=== PATIENT | female | born 1995 | race Caucasian/White ===

== ENCOUNTER 2019-05-17 06:21 | Emergency (ER) | payer SELFPAY ==
[~2019-05-17] VITALS: Ht 160 cm; Wt 84.0 kg
[2019-05-17 06:48] LABS: BILIRUBIN,URINE NEGATIVE (NEGATIVE); CLARITY,URINE CLEAR; COLOR,URINE DARK YELLOW; GLUCOSE, URINE (UA) NEGATIVE (NEGATIVE); KETONES,URINE NEGATIVE (NEGATIVE); LEUKOCYTE ESTERASE ,URINE NEGATIVE (NEGATIVE); NITRITE,URINE NEGATIVE (NEGATIVE); PH,URINE 5.5 (5-9); PROTEIN,URINE NEGATIVE (NEGATIVE)
--- NOTE | 2019-05-17 06:56 | ED General ---
General Chief Complaint: General Problems/Pain Stated Complaint: N/DIZZY,SHAKEY,WEAK Source of Information: Patient Exam Limitations: No Limitations History of Present Illness Date Seen by Provider: May 17, 2019 Time Seen by Provider: 06:38 Initial Comments Here with report of dizziness, nausea without vomiting, shaky and breast pain. She is 2 weeks past her time for her last menstrual period. She is sexually active and while she is not actively trying for , she is also not trying to prevent it. Denies fever or upper respiratory symptoms. Denies cough or shortness of breath. 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 Timing/Duration: 1-3 Hours Severity: Mild Associated Systoms: No Chest Pain, No Cough, No Fever/Chills, No Shortness of Air, No Weakness Allergies and Home Medications Allergies Coded Allergies: No Known Drug Allergies (Unverified , 05/17/19) Patient Home Medication List Home Medication List Reviewed: Yes Review of Systems Review of Systems Constitutional: no symptoms reported EENTM: No nose congestion, No throat pain Respiratory: No cough, No short of breath Cardiovascular: no symptoms reported Gastrointestinal: No diarrhea; nausea; No vomiting Genitourinary: No dysuria, No hematuria : Yes LMP: Apr 01, 2019 Musculoskeletal: no symptoms reported Skin: no symptoms reported Psychiatric/Neurological: Denies Headache; Other (dizziness) Past Qppqket-Saqzcx-Gmajgj Hx Past Med/Social Hx: Reviewed Nursing Past Med/Soc Hx Patient Social History Alcohol Use: Denies Use Recreational Drug Use: No Smoking Status: Current Everyday Smoker Recent Foreign Travel: No Contact w/Someone Who Travel: No Past Medical History Surgeries: Yes Tonsillectomy Respiratory: No Cardiac: No Neurological: No : Yes Genitourinary: No Gastrointestinal: No Musculoskeletal: No Endocrine: No Psychosocial: Yes Sleep Difficulties, Depression Family Medical History Reviewed Nursing Family Hx No Pertinent Family Hx Physical Exam Vital Signs Capillary Refill : Height, Weight, BMI Height: '" Weight: lbs. oz. kg; BMI Method: General Appearance: No Apparent Distress, WD/WN HEENT: PERRL/EOMI, TMs Normal, Pharynx Normal Neck: Non Tender, Supple Respiratory: Lungs Clear, Normal Breath Sounds Cardiovascular: Regular Rate, Rhythm, No Murmur Gastrointestinal: No Organomegaly, No Pulsatile Mass, Non Tender, Soft Extremity: Non Tender, No Calf Tenderness Neurologic/Psychiatric: Alert, Oriented x3 Skin: Normal Color, Warm/Dry Progress/Results/Core Measures Suspected Sepsis SIRS Temperature: Pulse: Respiratory Rate: Blood Pressure / Mean: Results/Orders Lab Results Laboratory Tests Test 05/17/19 06:39 Range/Units My Orders Orders - MURALI HOGAN MD Ua Culture If Indicated (05/17/19 06:39) Urine Bedside (05/17/19 06:39) Vital Signs/I&O Capillary Refill : Progress Note : Progress Note Seen and evaluated. Patient did have concerns about and symptoms. Morning sickness. We will get a bedside test and UA. 0653: Bedside test is positive for . Patient informed. We will forego further testing and symptoms fit with early and she is having no vaginal discharge or bleeding and no significant abdominal pain. UA has been ordered and we're awaiting results. Departure Impression Primary Impression: Nausea/vomiting in Disposition: 01 HOME, SELF-CARE Condition: Stable Departure-Patient Inst. Decision time for Depature: 07:00 Referrals: EMILIA KEYES BETHANY N MD FENECH,TORIE DE LUNA MD,MIGUEL ÁNGEL HINOJOSA,LOCAL PHYSICIAN (PCP) Primary Care Physician MATY SOLOMON ANGELA C DO [facility] Patient Instructions: Morning Sickness (DC) Add. Discharge Instructions: All discharge instructions reviewed with patient and/or family. Voiced understanding. Stay hydrated by taking small sips frequently. You may try light foods such as crackers and toast during times of nausea. You should start oobm-lfs-orxdpgm vitamin. You need to seek OB care. You should stop smoking. Follow-up with doctor of your choosing in the next few days for recheck and further evaluation. Return for worse pain, fever, vomiting, weakness, breathing problems or other concerns as needed. Work/School Note: Work Release Form Date Seen in the Emergency Department: May 17, 2019 Return to Work: May 18, 2019 Restrictions: No Restrictions MURALI HOGAN MD May 17, 2019 06:56
[2019-05-17 07:08] LABS: BACTERIA,URINE FEW /HPF; WBC,URINE 0-2 /HPF
[2019-05-17 07:20] VITALS: BP 126/87
== END 2019-05-17 07:20 | disposition home or self-care (01) ==
LOC: ER 06:28
DX: O21.0 Mild hyperemesis gravidarum (principal); O99.331 Smoking (tobacco) complicating pregnancy, first trimester; F17.200 Nicotine dependence, unspecified, uncomplicated; Z3A.01 Less than 8 weeks gestation of pregnancy
CPT/HCPCS: 81000; 84703; 99282

== ENCOUNTER 2019-06-21 12:59 | Emergency (ER) | payer SELFPAY ==
[~2019-06-21] VITALS: Ht 162.5 cm; Wt 92.0 kg
--- NOTE | 2019-06-21 13:25 | ED Lower Extremity ---
General Stated Complaint: L LEG PAIN Source: patient Exam Limitations: no limitations History of Present Illness Date Seen by Provider: June 21, 2019 Time Seen by Provider: 13:09 Initial Comments Patient presents ER by private home with chief complaint of left lower lateral leg pain for the past couple days. She is concerned he might have a blood clot. She smokes 2-3 cigarettes per day. She is a at 10 weeks and [address] Chu. She's had no injury to her leg. Worse with movement or walking. She has no problems bearing weight. No prior history of blood clots but she thinks her mother may have had blood clots when she was younger as well as her sister and she has two nephews with history of DVTs in their legs. She has not taken any other medications nor have any significant medical history. She is not having chest pain. She has no new shortness of breath. She says she's always felt a little short of breath since becoming . Allergies and Home Medications Allergies Coded Allergies: No Known Drug Allergies (Unverified , 05/17/19) Patient Home Medication List Home Medication List Reviewed: Yes Review of Systems Constitutional: No chills, No fever EENTM: No hearing loss, No ear pain Respiratory: No cough, No phlegm Cardiovascular: No chest pain, No edema Gastrointestinal: No abdominal pain, No nausea, No vomiting : Yes Expected Date of Delivery: Jan 15, 2020 LMP: Apr 10, 2019 Control/STD Prophylaxis: None Musculoskeletal: see HPI Past Hlpzyha-Tfrbip-Xowoyy Hx Patient Social History Alcohol Use: Denies Use Recreational Drug Use: No Smoking Status: Current Everyday Smoker (0.25 ppd) Type Used: Cigarettes 2nd Hand Smoke Exposure: No Recent Hopitalizations: No Seasonal Allergies Seasonal Allergies: No Past Medical History Surgeries: Yes Tonsillectomy Respiratory: No Cardiac: No Neurological: No Genitourinary: No Gastrointestinal: No Musculoskeletal: No Endocrine: No HEENT: No Cancer: No Psychosocial: Yes Sleep Difficulties, Depression Integumentary: No Blood Disorders: No Family Medical History No Pertinent Family Hx Physical Exam Vital Signs Vital Signs - First Documented 06/21/19 13:11 Temp 37.0 Pulse 94 Resp 18 B/P (MAP) 144/84 (104) Pulse Ox 99 Capillary Refill : Height, Weight, BMI Height: '" Weight: lbs. oz. kg; 32.00 BMI Method: General Appearance: WD/WN, no apparent distress HEENT: PERRL/EOMI, pharynx normal Neck: full range of motion, normal inspection Cardiovascular: normal peripheral pulses, regular rate, rhythm Respiratory: no respiratory distress, no accessory muscle use Legs: right leg non-tender; bilateral leg normal inspection, bilateral leg normal range of motion, bilateral leg no evidence of injury; left leg soft tissue tenderness (posterior lateral calf); bilateral leg other (symmetric size. Negative for Homans sign) Knees: bilateral knee non-tender, bilateral knee normal inspection, bilateral knee normal range of motion, bilateral knee no evidence of injury Ankles: bilateral ankle non-tender, bilateral ankle normal inspection, bilateral ankle normal range of motion, bilateral ankle no evidence of injury Neurologic/Tendon: normal sensation, normal motor functions, normal tendon functions, responds to pain Neurologic/Psychiatric: alert, normal mood/affect, oriented x 3 Skin: normal color, warm/dry Progress/Results/Core Measures Results/Orders Lab Results Laboratory Tests Test 06/21/19 13:30 Range/Units D-Dimer < 0.27 0.00-0.49 UG/ML My Orders Orders - KIRAN KOO Fibrin Degradation Products (06/21/19 13:19) Vital Signs/I&O 06/21/19 13:11 Temp 37.0 Pulse 94 Resp 18 B/P (MAP) 144/84 (104) Pulse Ox 99 Progress Progress Note : Time: 13:24 Progress Note Plan for a d-dimer. She showing no hemodynamic compromise. If the d-dimer failed to rule out we did set her up for an outpatient ultrasound and give her Lovenox. Departure Impression Primary Impression: Left leg pain Disposition: 01 HOME, SELF-CARE Condition: Stable Departure-Patient Inst. Decision time for Depature: 14:16 Referrals: NO,LOCAL PHYSICIAN (PCP/Family) Primary Care Physician Patient Instructions: Passive Range of Motion Exercises, Legs, Hips, Knees, and Ankles Add. Discharge Instructions: We can rule out a blood clot or any other dangerous source of pain from your leg based on clinical exam and laboratory. I suspect that there may be some subtle swelling impinging on nerve or other musculoskeletal injury that should resolve on its own. Over the weekend keep your legs elevated above the level of your heart when you don't need to be on them. Engage in some stretching exercises and walking for health. Tylenol 650 mg every 6 hours as needed for pain. Heat and massage may also be helpful. Plan to follow up with Dr. Chu on Monday. Return to the ER sooner if you have new or worrisome symptoms such as chest pain or profound shortness of breath etc. KIRAN KOO June 21, 2019 13:25
[2019-06-21 14:20] VITALS: BP 112/67
--- OUTSIDE RECORDS SUMMARY | 2019-06-21 14:42 | XMS REPORT | Continuity of Care Document ---
Author Organization Unknown Address Unknown Phone Unavailable Allergies Active Description Code Type Severity Reaction Onset Reported/Identified Relationship to Patient Clinical Status Yes No Known Drug Allergies [id number] Drug Allergy Unknown N/A 05/17/2019 Medications There is no data. 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 Results Test Result Range Complete urinalysis with reflex to cultu re - 05/17/19 06:39 Urine color determination DARK YELLOW N RG Urine clarity determination CLEAR NR G Urine pH measurement by test strip 5.5 5-9 Specific gravity of urine by test strip >= 1.016-1.022 Urine protein assay by test strip, semi-quantitative NEGATIVE NEGATIVE Urine glucose detection by automated test strip NE GATIVE NEGATIVE Erythrocytes detection in urine sediment by light micr oscopy NEGATIVE NEGATIVE Urine ketones detection by automated test strip NE GATIVE NEGATIVE Urine nitrite detection by test strip NEGATIVE NEGATIVE Urine total bilirubin detection by test strip NEGA TIVE NEGATIVE Urine urobilinogen measurement by automated test strip (mass/volume) 1.0 mg/dL < = 1.0 Urine leukocyte esterase detection by dipstick NEG ATIVE NEGATIVE Automated urine sediment erythrocyte cou nt by microscopy (number/high power field) NONE NRG Automated urine sediment leukocyte count by microscopy (number/high power field) [HPF] NRG Bacteria detection in urine sediment by light microsco py FEW NRG Squamous epithelial cells detection in u rine sediment by light microscopy 5-10 NRG Crystals detection in urine sediment by light microsco py NONE NRG Casts detection in urine sediment by light microscopy NONE NRG Mucus detection in urine sediment by light microscopy NEGATIVE NRG Complete urinalysis with reflex to culture NO NRG CBC - 05/27/19 15:52 WHITE BLOOD CELL COUNT 10.5 Thousand/uL 3.8-10.8 RED BLOOD CELL COUNT 4.32 Million/uL 3.8 0-5.10 HEMOGLOBIN 13.6 g/dL 11.7-15.5 HEMATOCRIT 41.2 % 35.0-45.0 MCV 95.4 fL 80.0-100.0 MCH 31.5 pg 27.0-33.0 MCHC 33.0 g/dL 32.0-36.0 RDW 12.3 % 11.0-15.0 PLATELET COUNT 288 Thousand/uL 140-400 MPV 11.7 fL 7.5-12.5 ABSOLUTE NEUTROPHILS 6636 cells/uL 1500- 7800 ABSOLUTE LYMPHOCYTES 3024 cells/uL 850-3 900 ABSOLUTE MONOCYTES 641 cells/uL 200-950 ABSOLUTE EOSINOPHILS 147 cells/uL 15-500 ABSOLUTE BASOPHILS 53 cells/uL 0-200 NEUTROPHILS 63.2 % NRG LYMPHOCYTES 28.8 % NRG MONOCYTES 6.1 % NRG EOSINOPHILS 1.4 % NRG BASOPHILS 0.5 % NRG BLOOD TPYE/RH FACTOR - 05/27/19 15:52 ABO GROUP A NRG RH TYPE RH(D) POSITIVE NRG ANTIBODY SCREEN - 05/27/19 15:52 ANTIBODY SCREEN, RBC W/REFL ID, TITER AND AG NO ANTIBODIES DETECTED NRG HCG, QUANTITATIVE - 05/27/19 15:52 [place], [place] [address] mIU/mL NRG RUBELLA IMMUNE STATUS - 05/27/19 15:52 RUBELLA ANTIBODY (IGG) 1.48 index NRG SUREPATH PAP RFX HPV mRNA E6/E7 - 15:54 CLINICAL INFORMATION: NRG LMP: NONE GIVEN NRG PREV. PAP: NONE GIVEN NRG PREV. BX: NONE GIVEN NRG SOURCE: Cervix NRG STATEMENT OF ADEQUACY: NRG INTERPRETATION/RESULT: NRG HOME ECONOMICS TEACHER: NRG COMMENT NRG Fibrin D-dimer FEU measurement in platel et poor plasma (mass/volume) - 06/21/19 13:30 Fibrin D-dimer FEU measurement in platelet poor plasma (mass/volume) < ug/mL 0.00-0.49 Encounters ACCT No. Visit Date/Time Discharge Status Pt. Type Provider Facility Loc./Unit Complaint [id number] 06/18/2019 15:00:00 ACT Outpatient [facility] [id number] 05/27/2019 14:30:00 Document Registration [id number] 05/17/2019 06:28:00 020 07:20:00 DIS Outpatient SAMIRA ALICIA, MURALI Crowell [facility] N/DIZZY,PHONG GAMA,2WKS PREG [id number] 06/21/2019 13:51:00 Document Registration
== END 2019-06-21 14:20 | disposition home or self-care (01) ==
LOC: EDUNIT# 12:59 → ER 13:03
DX: O99.89 Other specified diseases and conditions complicating pregnancy, childbirth and the puerperium (principal); M79.662 Pain in left lower leg; O99.331 Smoking (tobacco) complicating pregnancy, first trimester; F17.210 Nicotine dependence, cigarettes, uncomplicated; Z3A.10 10 weeks gestation of pregnancy
CPT/HCPCS: 36415; 85379; 99283

== ENCOUNTER 2019-10-10 13:53 | Outpatient (CLI) | payer MEDICAID ==
[~2019-10-10] VITALS: Ht 160 cm; Wt 101.7 kg
--- NOTE | 2019-10-10 13:45 | NUR ---
NANETTE ANGELA presented to unit via AMBULATORY from ED, accompanied by S/O, with c/o FALL. NANETTE ANGELA weighed, gowned, voided, and to bed. EFHM and TOCO applied, VS taken. NANETTE ANGELA oriented to bed controls, call light, TV, heat, and A/C controls.
[2019-10-10 14:06] VITALS: BP 114/76
[2019-10-10 14:14] VITALS: BP 114/76
[2019-10-10] MEDS ORDERED: BUSP15TA60 PO (14:19)
[2019-10-10] MEDS ORDERED: PREN-37 PO (14:20)
[2019-10-10] MEDS ORDERED: ONDA4TAB11 PO (14:20)
--- NOTE | 2019-10-10 14:30 | NUR ---
DR. SOLOMON NOTIFIED OF PT'S STATUS, @ 25.4 WKS, FELL AROUND [phone], LANDED ON RIGHT HIP AND LEFT KNEE, REVIEW OF STRIP, UNABLE TO VOID. ORDERS RECEIVED FOR DISCHARGE HOME.
--- NOTE | 2019-10-10 14:40 | NUR ---
DISCHARGE PAPERS PROVIDED AND REVIEWED WITH PT, PT VERBALIZES UNDERSTANDING AND DENIES ANY QUESTIONS AT THIS TIME. PAPER SIGNED.
--- NOTE | 2019-10-10 14:43 | NUR ---
PT DISCHARGED FROM [facility] TO [facility] VIA AMBULATORY IN STABLE CONDITION ACC BY S/O.
== END 2019-10-10 14:43 | disposition home or self-care (01) ==
LOC: WSo 13:53
PROVIDERS: ATTEND Obstetrics & Gynecology
DX: Z34.90 Encounter for supervision of normal pregnancy, unspecified, unspecified trimester (principal); Z3A.00 Weeks of gestation of pregnancy not specified
CPT/HCPCS: 99212

== ENCOUNTER 2019-10-16 15:19 | Outpatient (CLI) | payer MEDICAID ==
[~2019-10-16] VITALS: Ht 160 cm; Wt 99.4 kg
--- NOTE | 2019-10-16 15:00 | NUR ---
Arrived to unit with c/o decreased movement. wt obtained and to room 315. Gowned and urine sample obtained. To bed and oriented to room, call light and surroundings. bed controls explained. plan of care reviewed with pt. pt reports she is concerned with the Diflucan that was prescribed to her and well being of baby with decreased movement.
--- NOTE | 2019-10-16 15:10 | NUR ---
marker button given to wagner kicks. pt reports feeling baby move at this time
[2019-10-16 15:15] VITALS: BP 124/77
[~2019-10-16 15:19] MED LIST: BUSP15TA60 PO; ONDA4TAB11 PO; PREN-37 PO
[2019-10-16 15:37] VITALS: BP 124/77
[2019-10-16] MEDS ORDERED: FLUC200T PO (15:40)
--- NOTE | 2019-10-16 15:50 | NUR ---
Dr Smith called and notified of pt arrival, c/o, assessment, no contractions noted, fhr pattern and kicks felt. New orders for discharge received. dr smith ok with pt stopping Diflucan if she is uncomfortable taking prescribed medication.
--- NOTE | 2019-10-16 15:59 | NUR ---
monitors off. plan of care reviewed with pt per Sandro Chavez RN
--- NOTE | 2019-10-16 16:01 | NUR ---
Discharge instructions explained, signed and copy to patient. pt verbalized understanding of instructions and denied questions.
--- NOTE | 2019-10-16 16:05 | NUR ---
Discharged to home. Ambulates self downstairs accompanied by s.o. To private vehicle with belongings.
== END 2019-10-16 16:05 | disposition home or self-care (01) ==
LOC: WSo 15:19 → LDRP 15:20 → WSo 16:05
PROVIDERS: ATTEND Obstetrics & Gynecology
DX: O36.8120 Decreased fetal movements, second trimester, not applicable or unspecified (principal); Z3A.27 27 weeks gestation of pregnancy
CPT/HCPCS: 99213

== ENCOUNTER 2019-11-24 20:35 | Outpatient (CLI) | payer MEDICAID ==
[~2019-11-24] VITALS: Ht 162.6 cm; Wt 106.3 kg
[~2019-11-24 20:35] MED LIST changes: +FLUC200T PO
--- NOTE | 2019-11-24 20:35 | NUR ---
NANETTE ANGELA presented to unit via ambulatory from ED, accompanied by s/o, with c/o LEAKING FLUID. NANETTE ANGELA weighed, gowned, voided, and to bed. EFHM and TOCO applied, VS taken. NANETTE ANGELA oriented to bed controls, call light, TV, heat, and A/C controls. above and further assessments completed per this rn.
[2019-11-24 21:09] VITALS: BP 0/0
[2019-11-24 21:23] LABS: BILIRUBIN,URINE NEGATIVE (NEGATIVE); CLARITY,URINE CLOUDY; COLOR,URINE YELLOW; GLUCOSE, URINE (UA) NEGATIVE (NEGATIVE); KETONES,URINE NEGATIVE (NEGATIVE); LEUKOCYTE ESTERASE ,URINE NEGATIVE (NEGATIVE); NITRITE,URINE NEGATIVE (NEGATIVE); PROTEIN,URINE NEGATIVE (NEGATIVE)
[2019-11-24 21:28] VITALS: BP 137/92
[2019-11-24 21:32] LABS: BACTERIA,URINE TRACE /HPF; WBC,URINE 0-2 /HPF
--- NOTE | 2019-11-24 21:38 | NUR ---
notified of pt arrival, gestation, c/o leaking, nitrazine and fern results, ctx pattern, fhr pattern with screenshots send via phone, u/a results, vs with pt concerns of preeclamsia r/t andujar, n/v x1 day, and history of protein in urine. orders for cbc, cmp, ldh, uric acid, and urine protein creatnin ratio ordered.
[2019-11-24 22:27] LABS: BASOPHILS % (AUTO) 0 % (0-10); EOSINOPHILS # (AUTO) 0.2 10^3/uL (0.0-0.3); EOSINOPHILS % (AUTO) 1 % (0-10); HEMATOCRIT 40 % (35-52); HEMOGLOBIN 13.6 g/dL (11.5-16.0); LYMPHOCYTES # (AUTO) 2.6 10^3/uL (1.0-4.0); LYMPHOCYTES % (AUTO) 24 % (12-44); MEAN CORPUSCULAR HEMOGLOBIN 32 pg (25-34); MEAN CORPUSCULAR HGB CONC 34 g/dL (32-36); MEAN CORPUSCULAR VOLUME 94 fL (80-99); MEAN PLATELET VOLUME 12.7 fL (9.0-12.2); MONOCYTES % (AUTO) 10 % (0-12); NEUTROPHILS # (AUTO) 6.9 10^3/uL (1.8-7.8); NEUTROPHILS % (AUTO) 64 % (42-75); PLATELET COUNT 236 10^3/uL (130-400); WHITE BLOOD COUNT 10.7 10^3/uL (4.3-11.0)
[2019-11-24 22:39] LABS: ALBUMIN 3.2 GM/DL (3.2-4.5); CHLORIDE 103 MMOL/L (98-107); POTASSIUM 3.8 MMOL/L (3.6-5.0); SODIUM 138 MMOL/L (135-145)
[2019-11-24 22:41] LABS: GLUCOSE 86 MG/DL (70-105); TOTAL PROTEIN 6.3 GM/DL (6.4-8.2)
[2019-11-24 22:42] LABS: CARBON DIOXIDE 20 MMOL/L (21-32)
[2019-11-24 22:43] LABS: BILIRUBIN,TOTAL 0.2 MG/DL (0.1-1.0)
[2019-11-24 22:45] LABS: ALKALINE PHOSPHATASE 98 U/L (40-136); GFR ESTIMATED > 60
[2019-11-24 22:46] LABS: BUN/CREATININE RATIO 15
[2019-11-24 22:48] LABS: ALANINE AMINOTRANSFERASE 12 U/L (0-55); URIC ACID 4.9 MG/DL (2.6-7.2)
--- NOTE | 2019-11-24 22:55 | NUR ---
notified of lab results and fhr pattern, rn questioned if dr could view strip from home and dr reported it is a possibility for her. Orders for LR bolus at this time. will cont to monitor.
[2019-11-24] MEDS ORDERED: LACTATED RINGERS 1,000 ML IV ONE (23:30)
--- NOTE | 2019-11-24 23:47 | NUR ---
RN requested physician view strip at home, and to call unit, contacts rn and reports difficulty with log in, deceleration noted at 2338 verbally reported to physician, orders for continuous monitoring overnight with bpp and ultrasound evaluation of fluid level and placenta in am.
--- NOTE | 2019-11-25 00:57 | NUR ---
notified of two latest decelerations being deep variable in nature, as physician on phone variable decel being described real time to physician. Physician logging in to computer, asks for surgeon electronic device repairer, which is , dr. dumont to contact either or [place] [facility]. Addendum: 11/25/19 at 0141 by TOO HUDSON RN rn reminded physician that no sve has been performed, no orders to carry out sve at this time.
[2019-11-25] MEDS ORDERED: LACTATED RINGERS 1,000 ML IV SCH (02:00)
[2019-11-25] MEDS ORDERED: D5 LR IV SOLUTION 1,000 ML IV SCH (02:00)
[2019-11-25] MEDS ORDERED: D5 LR IV SOLUTION 1,000 ML IV ONE (02:01)
--- NOTE | 2019-11-25 03:50 | NUR ---
calls unit and notifies this rn of birthing center accepting patient, orders for betamethasone given. see emar.
[2019-11-25] MEDS ORDERED: BETAMETHASONE ACE/NA PHOS 6 MG/ML (CELESTONE SOLUSPAN) ONE (03:53)
--- NOTE | 2019-11-25 04:03 | NUR ---
Shift notified of request for transfer. Addendum: 11/25/19 at 0447 by TOO HUDSON RN company: [facility]
--- NOTE | 2019-11-25 04:07 | NUR ---
[facility] dispatch notified of request for transfer
--- NOTE | 2019-11-25 04:11 | NUR ---
Report to Brandee israel RN of [facility].
--- NOTE | 2019-11-25 04:30 | NUR ---
EMS present on unit for transfer.
[2019-11-25 04:40] VITALS: BP 111/63
--- NOTE | 2019-11-25 04:43 | NUR ---
PT off unit at this time via stretcher with [facility] ems team.
--- NOTE | 2019-11-25 08:32 | Short Stay Summary ---
History of Present Illness History of Present Illness Reason for visit/HPI G1 at 32w5d presented to labor and delivery with complaint of leaking fluid. After arrival on further questioning, also admitted headache, vomiting yesterday and decreased movement. Denies contractions. Date of Admission 11/24/19 Date of Discharge 11/25/19 Time Seen by Provider: 00:00 Attending Physician Dani Whaley MD Admitting Physician [facility] Consult Allergies and Home Medications Allergies Coded Allergies: No Known Drug Allergies (Unverified , 05/17/19) Home Medications Buspirone HCl 15 Mg Tablet, 15 MG PO BID, (Reported) Ondansetron 4 Mg Tab.rapdis, 4 MG PO DAILY, (Reported) Vit/Iron Fumarate/FA 1 Each Tablet, 1 EACH PO DAILY, (Reported) Patient Home Medication List Home Medication List Reviewed: Yes Past Ofskxdl-Chadpb-Mxnyqg Hx Patient Social History Alcohol Use: Denies Use Recreational Drug Use: No Smoking Status: Current Everyday Smoker Type Used: Cigarettes 2nd Hand Smoke Exposure: Yes Recent Hopitalizations: No Immunizations Up To Date Date of Influenza Vaccine: Sep 24, 2019 Seasonal Allergies Seasonal Allergies: No Surgeries Yes Tonsillectomy Respiratory No Cardiovascular No Neurological No Reproductive System Expected Date of Delivery: Jan 15, 2020 Hx : 1 Hx Para: 0 Hx Total # of Abortions (Spona: 0 Genitourinary No Gastrointestinal No Musculoskeletal No Endocrine History of Endocrine Disorders: No HEENT History of HEENT Disorders: No Cancer No Psychosocial History of Psychiatric Problem: Yes Behavioral Health Disorders: Sleep Difficulties, Depression Integumentary History of Skin or Integumenta: No Blood Transfusions History of Blood Disorders: No Family Medical History Significant Family History: No Pertinent Family Hx Review of Systems Constitutional: No fever Respiratory: No cough, No short of breath Gastrointestinal: see HPI Genitourinary: see HPI : Yes Expected Date of Delivery: Jan 15, 2020 Physical Exam Vital Signs Vital Signs - First Documented 11/24/19 11/25/19 11/25/19 21:09 00:00 04:40 Temp 36.8 Pulse 0 Resp 18 B/P (MAP) 111/63 (79) Pulse Ox 0 O2 Delivery Room Air O2 Flow Rate 15.00 Capillary Refill : Less Than 3 Seconds Height, Weight, BMI Height: '" Weight: lbs. oz. kg; 40.20 BMI Method: General Appearance: Other (exam per nursing) Short Stay Diagnosis Discharge Diagnosis-Short Stay Admission Diagnosis: Third trimester 32 weeks gestation Leaking fluid Vomiting Headache Final Discharge Diagnosis: Third trimester 32 weeks gestation SROM ruled out- negative nitrazine and ferning Vomiting- none during admit, LFTs normal Headache- mildly elevated blood pressure, CBC, CMP, uric acid, LDH and urine pr/cr ratio unremarkable heart rate decelerations- recurrent unexplained decelerations- as low as 60s and as long as 2 minutes without contractions, transferred to [place] for further evaluation and in case of need for delivery given availability of NICU Conclusion Labs Laboratory Tests 11/24/19 20:50: Amniotic Fluid Ferning Test NEG 11/24/19 20:55: Urine Color YELLOW, Urine Clarity CLOUDY, Urine pH 6.0, Urine Specific [place] 1.025H, Urine Protein 13H, Urine Glucose (UA) NEGATIVE, Urine Ketones NEGATIVE, Urine Nitrite NEGATIVE, Urine Bilirubin NEGATIVE, Urine Urobilinogen 0.2, Urine Leukocyte Esterase NEGATIVE, Urine RBC (Auto) NEGATIVE, Urine RBC NONE, Urine WBC 0-2, Urine Squamous Epithelial Cells 5-10, Urine Crystals NONE, Urine Bacteria TRACE, Urine Casts NONE, Urine Mucus NEGATIVE, Urine Culture Indicated NO, Urine Creatinine 93, Urine Protein/Creatinine Ratio 0.14 11/24/19 21:55: White Blood Count 10.7, Red Blood Count 4.21, Hemoglobin 13.6, Hematocrit 40, Mean Corpuscular Volume 94, Mean Corpuscular Hemoglobin 32, Mean Corpuscular Hemoglobin Concent 34, Red Cell Distribution Width 13.3, Platelet Count 236, Mean Platelet Volume 12.7H, Immature Granulocyte % (Auto) 1, Neutrophils (%) (Auto) 64, Lymphocytes (%) (Auto) 24, Monocytes (%) (Auto) 10, Eosinophils (%) (Auto) 1, Basophils (%) (Auto) 0, Neutrophils # (Auto) 6.9, Lymphocytes # (Auto) 2.6, Monocytes # (Auto) 1.0, Eosinophils # (Auto) 0.2, Basophils # (Auto) 0.0, Immature Granulocyte # (Auto) 0.1, Sodium Level 138, Potassium Level 3.8, Chloride Level 103, Carbon Dioxide Level 20L, Anion Gap 15H, Blood Urea Nitrogen 9, Creatinine 0.60, Estimat Glomerular Filtration Rate > 60, BUN/Creatinine Ratio 15, Glucose Level 86, Uric Acid 4.9, Calcium Level 9.0, Corrected Calcium 9.6, Total Bilirubin 0.2, Aspartate Amino Transf (AST/SGOT) 9, Alanine Aminotransferase (ALT/SGPT) 12, Alkaline Phosphatase 98, Lactate Dehydrogenase 138, Total Protein 6.3L, Albumin 3.2 Conclusion/Plan See discharge diagnosis. I did not see patient, I did review her heart rate tracing and labs and discussed case with nurse and coordinated transfer. Copy Copies To 1: TORIE TOLENTINO MD,DANI Centeno MD Nov 25, 2019 08:32
[2019-11-25] MEDS ORDERED: BETAMETHASONE ACE/NA PHOS 6 MG/ML (CELESTONE SOLUSPAN) IM ONE (09:00)
== END 2019-11-25 04:43 | disposition designated cancer center or children's hospital (05) ==
LOC: WSo 20:35 → LDRP 20:35 → WSo 11-25 04:43
PROVIDERS: ATTEND Family Medicine
DX: O36.8130 Decreased fetal movements, third trimester, not applicable or unspecified (principal); O26.893 Other specified pregnancy related conditions, third trimester; R51.9 Headache, unspecified; Z3A.32 32 weeks gestation of pregnancy
CPT/HCPCS: 80053; 81000; 82570; 83615; 84156; 84550; 85025; 96360; 96361; G0463; Q0114; 36415; 89060; 99213

== ENCOUNTER 2020-01-22 20:06 | Emergency (ER) | payer MEDICAID ==
[~2020-01-22] VITALS: Ht 165.1 cm; Wt 72.6 kg
--- NOTE | 2020-01-22 20:25 | ED Respiratory ---
General Chief Complaint: Cough/Cold/Flu Symptoms Stated Complaint: SORE THROAT/COUGHING/BODY ACHES/SOB Source: patient Exam Limitations: no limitations History of Present Illness Date Seen by Provider: Jan 22, 2020 Time Seen by Provider: 20:24 Initial Comments This is a healthy-appearing 24-year-old female presents to ER with complaints of cough, congestion, fever, sore throat, and loss of taste/smell 3 days ago. States she would like to be checked out for COVID. Denies chest pain, shortness of breath, nausea, vomiting, diarrhea, abdominal pain. LMP "a couple months ago", unknown status, is currently sexually active with no protection or use of control. Allergies and Home Medications Allergies Coded Allergies: No Known Drug Allergies (Unverified , 05/17/19) Home Medications Buspirone HCl 15 Mg Tablet, 15 MG PO BID, (Reported) Ondansetron 4 Mg Tab.rapdis, 4 MG PO DAILY, (Reported) Vit/Iron Fumarate/FA 1 Each Tablet, 1 EACH PO DAILY, (Reported) Patient Home Medication List Home Medication List Reviewed: Yes Review of Systems Review of Systems Constitutional: see HPI EENTM: see HPI Respiratory: no symptoms reported Cardiovascular: see HPI Gastrointestinal: no symptoms reported Genitourinary: no symptoms reported Musculoskeletal: no symptoms reported Skin: no symptoms reported Psychiatric/Neurological: No Symptoms Reported Hematologic/Lymphatic: No Symptoms Reported Immunological/Allergic: no symptoms reported Past Zrczlny-Arjuju-Bosnye Hx Patient Social History Type Used: Cigarettes 2nd Hand Smoke Exposure: Yes Recent Hopitalizations: No Immunizations Up To Date Date of Influenza Vaccine: Sep 24, 2019 Seasonal Allergies Seasonal Allergies: No Past Medical History Surgeries: Yes Tonsillectomy Respiratory: No Cardiac: No Neurological: No Genitourinary: No Gastrointestinal: No Musculoskeletal: No Endocrine: No HEENT: No Cancer: No Psychosocial: Yes Sleep Difficulties, Depression Integumentary: No Blood Disorders: No Family Medical History No Pertinent Family Hx Physical Exam Vital Signs - First Documented 01/22/20 20:22 Temp 37.1 Pulse 99 Resp 19 B/P (MAP) 122/83 (96) Pulse Ox 97 O2 Delivery Room Air Capillary Refill : Height: '" Weight: lbs. oz. kg; 40.20 BMI Method: General Appearance: WD/WN, no apparent distress Eyes: Bilateral Eye Normal Inspection, Bilateral Eye PERRL, Bilateral Eye EOMI HEENT: PERRL/EOMI, TMs normal, pharynx normal, other (nasal congestion) Neck: non-tender, full range of motion, normal inspection Respiratory: lungs clear, normal breath sounds, no respiratory distress, no accessory muscle use Cardiovascular: regular rate, rhythm, no edema, no murmur Gastrointestinal: normal bowel sounds, non tender, soft Extremities: normal range of motion, non-tender, normal inspection Neurologic/Psychiatric: no motor/sensory deficits, alert, normal mood/affect, oriented x 3 Skin: normal color, warm/dry Progress/Results/Core Measures Suspected Sepsis SIRS Temperature: Pulse: Respiratory Rate: Blood Pressure / Mean: Results/Orders Lab Results Laboratory Tests Test 01/22/20 20:35 Range/Units Coronavirus 2018 ([facility]KSANDR) Negative Negative Group A Streptococcus Screen NEGATIVE NEGATIVE Micro Results Microbiology 01/22/20 Influenza Types A,B Antigen ([facility]AL[facility]) - Final, Complete My Orders Orders - ZARA ROCK APRN Covid 19 Inhouse Test (01/22/20 20:23) Chest 1 View, Ap/Pa Only (01/22/20 20:28) Influenza A And B Antigens (01/22/20 20:30) Rapid Strep A Screen (01/22/20 20:30) Coronavirus Sars-Cov-2 So 2018 (01/22/20 21:23) Vital Signs/I&O 01/22/20 01/22/20 01/22/20 20:22 20:35 21:37 Temp 37.1 37.1 Pulse 99 89 Resp 19 18 B/P (MAP) 122/83 (96) 118/76 (96) Pulse Ox 97 98 O2 Delivery Room Air Room Air Room Air Capillary Refill : Progress Note : Progress Note Orders placed for rapid COVID, strep, influenza, and chest x-ray. Chest x-ray reviewed and shows no acute findings.Swabs negative. However due to presentation and loss of taste/smell, will order PCR to confirm and have patient remain in quarantine until results are returned. Reviewed discharge plan of care and she is agreeable with plan. Diagnostic Imaging Diagonstic Imaging: Xray Plain Films/CT/US/NM/MRI: chest Comments NAME: NANET[facility] ANGELA [facility] REC#: [id number] PT STATUS: REG ER : 1995 PHYSICIAN: ZARA ROCK ASSIGNMENT CLERK ADMIT DATE: 01/22/20/ER Draft Date of Exam:01/22/20 CHEST 1 VIEW, AP/PA ONLY INDICATION: SOA. COMPARISON: None. EXAMINATION: Single frontal view of the chest was obtained. FINDINGS: Normal heart size and pulmonary vascularity. The lungs are well aerated and clear. No large pleural effusion or pneumothorax is seen. The visualized osseous structures show no acute abnormality. IMPRESSION: No acute cardiopulmonary process. Dictated on workstation # [id number] Dict: 01/22/202057 Trans: 01/22/202107 [facility] [id number] Interpreted by: JUANIS AMBROSIO MD Electronically signed by: Departure Impression Primary Impression: Suspected COVID-19 virus infection Disposition: 01 HOME, SELF-CARE Condition: Stable/Unchanged Departure-Patient Inst. Decision time for Depature: 21:17 Referrals: [facility] (PCP/Family) Primary Care Physician Patient Instructions: Coronavirus Disease 2019 (COVID-19) ED Add. Discharge Instructions: Plan: 1. Discharge home. 2. May take Tylenol as needed for pain per package instructions. 3. You will need to isolate at home for the next 10 days, the health department will contact you and provide you with your release from isolation. Health Department phone number [phone]. 4. Return for any new or concerning symptoms. All discharge instructions reviewed with patient and/or family. Voiced understanding. ZARA ROCK ASSIGNMENT CLERK Jan 22, 2020 20:25
--- NOTE | 2020-01-22 21:06 | Diagnostic Imaging Report ---
INDICATION: SOA. COMPARISON: None. EXAMINATION: Single frontal view of the chest was obtained. FINDINGS: Normal heart size and pulmonary vascularity. The lungs are well aerated and clear. No large pleural effusion or pneumothorax is seen. The visualized osseous structures show no acute abnormality. IMPRESSION: No acute cardiopulmonary process. Dictated by: Dictated on workstation # [id number]
[2020-01-22 21:37] VITALS: BP 118/76
== END 2020-01-22 21:38 | disposition home or self-care (01) ==
LOC: EDUNIT# 20:06 → ER 20:07
DX: Z20.828 Contact with and (suspected) exposure to other viral communicable diseases (principal); Z77.22 Contact with and (suspected) exposure to environmental tobacco smoke (acute) (chronic)
CPT/HCPCS: 71045; 84703; 87430; 87804; 99283; U0002; 87635

== ENCOUNTER 2021-06-15 06:58 | Emergency (ER) | payer MEDICAID ==
[~2021-06-15] VITALS: Ht 162 cm; Wt 95.0 kg
--- NOTE | 2021-06-15 07:19 | ED GU-Female ---
General Chief Complaint: OB > 20 WEEKS Stated Complaint: 11 WKS PREG,POSS MISCARRIAGE Source: patient Exam Limitations: no limitations History of Present Illness Date Seen by Provider: June 15, 2021 Time Seen by Provider: 07:05 Initial Comments The patient presents to the ER by private conveyance with her significant other and chief complaint that she has been having some light cramping in her low pelvis bilaterally since yesterday evening. This morning she had some pink- tinged urine and passed a small formed blood clot. No tissue. She is a with a history of and an LMP sometime in March putting her around 12 weeks. She has an appointment next week with Dr. Tolentino to establish care for obstetrics. She does not have a primary care doctor nor does she have any previous medical history. 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 She denies smoking drinking or recreational drugs. She does use a nicotine vaporizer. She has not had any imaging done. Allergies and Home Medications Allergies Coded Allergies: No Known Drug Allergies (Unverified , 05/17/19) Patient Home Medication List Home Medication List Reviewed: Yes Buspirone HCl (Buspirone HCl) 15 Mg Tablet, 15 MG PO BID, (Reported) Entered as Reported by: JOEL ZELAYA on 10/10/19 1419 Ondansetron (Ondansetron Odt) 4 Mg Tab.rapdis, 4 MG PO DAILY, (Reported) Entered as Reported by: JOEL ZELAYA on 10/10/19 1420 Vit/Iron Fumarate/FA ( Tablet) 1 Each Tablet, 1 EACH PO DAILY, (Reported) Entered as Reported by: JOEL ZELAYA on 10/10/19 1420 Review of Systems Review of Systems Constitutional: No chills, No fever EENTM: No ear discharge, No ear pain Respiratory: No cough, No short of breath Cardiovascular: No chest pain, No edema Gastrointestinal: abdominal pain; No constipation, No diarrhea, No nausea Genitourinary: see HPI; denies discharge, denies dysuria Musculoskeletal: No back pain, No joint pain Skin: No pruritus, No rash All Other Systemes Reviewed Negative Unless Noted: Yes Past Kvunbyq-Dxjjjh-Szvczl Hx Patient Social History Tobacco Use?: No Use of E-Cig and/or Vaping dev: Yes E-Cig or Vaping type used: Nicotine Substance use?: No Seasonal Allergies Seasonal Allergies: No Past Medical History Surgeries: Yes Tonsillectomy Respiratory: No Cardiac: No Neurological: No Genitourinary: No Gastrointestinal: No Musculoskeletal: No Endocrine: No HEENT: No Cancer: No Psychosocial: Yes Sleep Difficulties, Depression Integumentary: No Blood Disorders: No Family Medical History No Pertinent Family Hx Physical Exam Vital Signs Vital Signs - First Documented 06/15/21 07:06 Temp 36.9 Pulse 105 Resp 18 B/P (MAP) 149/93 (111) Capillary Refill : Height, Weight, BMI Height: '" Weight: lbs. oz. kg; 26.00 BMI Method: General Appearance: WD/WN, mild distress HEENT: PERRL/EOMI, pharynx normal Neck: full range of motion, normal inspection Cardiovascular: normal peripheral pulses, regular rate, rhythm Respiratory: no respiratory distress, no accessory muscle use Gastrointestinal: normal bowel sounds, non tender, soft, no organomegaly Back: normal inspection, no CVA tenderness Neurologic/Psychiatric: alert, oriented x 3, other (Anxious affect) Skin: normal color, warm/dry Progress/Results/Core Measures Suspected Sepsis SIRS Temperature: Pulse: Respiratory Rate: Laboratory Tests 06/15/21 07:50: White Blood Count 11.2H Blood Pressure / Mean: Laboratory Tests 06/15/21 07:50: Creatinine 0.65, Platelet Count 312 Results/Orders Lab Results Laboratory Tests Test 06/15/21 07:25 06/15/21 07:50 Range/Units Urine Color YELLOW Urine Clarity CLEAR Urine pH 5.0 5-9 Urine Specific [place] >=1.030 1.016-1.022 Urine Protein NEGATIVE NEGATIVE Urine Glucose (UA) NEGATIVE NEGATIVE Urine Ketones NEGATIVE NEGATIVE Urine Nitrite NEGATIVE NEGATIVE Urine Bilirubin NEGATIVE NEGATIVE Urine Urobilinogen 0.2 < = 1.0 MG/DL Urine Leukocyte Esterase NEGATIVE NEGATIVE Urine RBC (Auto) 2+ H NEGATIVE Urine RBC 0-2 /HPF Urine WBC 0-2 /HPF Urine Squamous Epithelial Cells 5-10 /HPF Urine Crystals NONE /LPF Urine Bacteria FEW H /HPF Urine Casts NONE /LPF Urine Mucus NEGATIVE /LPF Urine Culture Indicated NO White Blood Count 11.2 H 4.3-11.0 10^3/uL Red Blood Count 4.49 3.80-5.11 10^6/uL Hemoglobin 13.9 11.5-16.0 g/dL Hematocrit 41 35-52 % Mean Corpuscular Volume 90 80-99 fL Mean Corpuscular Hemoglobin 31 25-34 pg Mean Corpuscular Hemoglobin Concent 34 32-36 g/dL Red Cell Distribution Width 12.8 10.0-14.5 % Platelet Count 312 130-400 10^3/uL Mean Platelet Volume 10.6 9.0-12.2 fL Immature Granulocyte % (Auto) 0 % Neutrophils (%) (Auto) 65 42-75 % Lymphocytes (%) (Auto) 26 12-44 % Monocytes (%) (Auto) 6 0-12 % Eosinophils (%) (Auto) 2 0-10 % Basophils (%) (Auto) 0 0-10 % Neutrophils # (Auto) 7.3 1.8-7.8 10^3/uL Lymphocytes # (Auto) 2.9 1.0-4.0 10^3/uL Monocytes # (Auto) 0.7 0.0-1.0 10^3/uL Eosinophils # (Auto) 0.2 0.0-0.3 10^3/uL Basophils # (Auto) 0.1 0.0-0.1 10^3/uL Immature Granulocyte # (Auto) 0.1 0.0-0.1 10^3/uL Sodium Level 137 135-145 MMOL/L Potassium Level 3.5 L 3.6-5.0 MMOL/L Chloride Level 103 98-107 MMOL/L Carbon Dioxide Level 20 L 21-32 MMOL/L Anion Gap 14 5-14 MMOL/L Blood Urea Nitrogen 8 7-18 MG/DL Creatinine 0.65 0.60-1.30 MG/DL Estimat Glomerular Filtration Rate 124 BUN/Creatinine Ratio 12 Glucose Level 95 70-105 MG/DL Calcium Level 9.1 8.5-10.1 MG/DL Human Chorionic Gonadotropin, Quant 56045 H <5 MIU/ML My Orders Orders - KIRAN KOO Cbc With Automated Diff (06/15/21 07:13) Hcg,Quantitative (06/15/21 07:13) Abo Rh Type (06/15/21 07:13) Ed Iv/Invasive Line Start (06/15/21 07:13) Basic Metabolic Panel (06/15/21 07:13) Ua Culture If Indicated (06/15/21 07:13) Urine Bedside (06/15/21 07:13) Us Ob<14 Wks Sngle W/Transvag (06/15/21 07:13) Vital Signs/I&O 06/15/21 07:06 Temp 36.9 Pulse 105 Resp 18 B/P (MAP) 149/93 (111) Capillary Refill : Progress Note : Time: : Progress Note A positive. Ultrasound reveals a blighted ovum. We discussed intervention versus expectant management of a miscarriage. Follow-up with nut roaster. Diagnostic Imaging Diagonstic Imaging: Ultrasound Plain Films/CT/US/NM/MRI: pelvis Comments [facility] [place] NAME: NANETTE ANGELA [facility] REC#: [id number] PT STATUS: REG ER : 1995 PHYSICIAN: KIRAN KOO MD ADMIT DATE: 06/15/21/ER Draft Date of Exam:06/15/21 US OB<14 WKS SNGLE W/TRANSVAG Indication: 1st trimester bleeding. Findings: There is an intrauterine gestational sac which contains a tiny area of nodular nonvascularized structure which may be debris. No viable gestation. No identifiable cardiac activity yolk sac or convincing embryonic pole. Blighted ovum presumed. The gestational sac measures a average diameter 4.4 cm correlating with an age 10 week 1 day. No evidence for extrauterine gestation. No adnexal abnormality or free fluid. Impression: 1. Irregular intrauterine gestational sac with no viable gestation consistent with blighted oval sac measures 10 week 1 day. 2. No evidence for extrauterine gestation. Dictated on workstation # [id number] Dict: 06/15/21902 Trans: 06/15/21939 CV [id number] Interpreted by: DIOR BANKS Electronically signed by: Reviewed: Reviewed by Me Departure Impression Primary Impression: Miscarriage at 8 to 28 weeks gestation Additional Impression: Blighted ovum Disposition: 01 HOME, SELF-CARE Condition: Stable Departure-Patient Inst. Decision time for Depature: 10:20 Referrals: [facility] (PCP/Family) Primary Care Physician Patient Instructions: Miscarriage (DC) Add. Discharge Instructions: Make a follow-up appointment with your nut roaster in the next week or 2 to help manage your symptoms. Your body will typically take care of the miscarriage naturally and will often not need any medical intervention. If you develop heavy bleeding with large blood clots greater than a chicken's egg and/or filling a pad and tampon more than once an hour then you should follow-up with either your nut roaster or return to the ER. If you develop chest pain or shortness of air then return to the ER promptly. Tylenol 1000 mg every 8 hours as needed for pain. Ibuprofen 800 mg every 8 hours needed for pain. All discharge instructions reviewed with patient and/or family. Voiced understanding. Work/School Note: Family Work Note, Patient Received Medical Care In the Emergency Department On: June 15, 2021 Patient Will Be Able to Return to Work/School On: June 16, 2021 Work Release Form Date Seen in the Emergency Department: June 15, 2021 Return to Work: June 21, 2021 Restrictions: No Restrictions Other Restrictions Listed Below: May return sooner if feeling better. Copy Copies To 1: TORIE TOLENTINO MD, TITUS J June 15, 2021 07:19
[2021-06-15 07:38] LABS: BILIRUBIN,URINE NEGATIVE (NEGATIVE); CLARITY,URINE CLEAR; COLOR,URINE YELLOW; GLUCOSE, URINE (UA) NEGATIVE (NEGATIVE); KETONES,URINE NEGATIVE (NEGATIVE); LEUKOCYTE ESTERASE ,URINE NEGATIVE (NEGATIVE); NITRITE,URINE NEGATIVE (NEGATIVE); PROTEIN,URINE NEGATIVE (NEGATIVE)
[2021-06-15 07:55] LABS: BACTERIA,URINE FEW /HPF; RBC,URINE 0-2 /HPF; WBC,URINE 0-2 /HPF
[2021-06-15 07:56] LABS: BASOPHILS # (AUTO) 0.1 10^3/uL (0.0-0.1); BASOPHILS % (AUTO) 0 % (0-10); EOSINOPHILS # (AUTO) 0.2 10^3/uL (0.0-0.3); EOSINOPHILS % (AUTO) 2 % (0-10); HEMATOCRIT 41 % (35-52); HEMOGLOBIN 13.9 g/dL (11.5-16.0); LYMPHOCYTES # (AUTO) 2.9 10^3/uL (1.0-4.0); LYMPHOCYTES % (AUTO) 26 % (12-44); MEAN CORPUSCULAR HEMOGLOBIN 31 pg (25-34); MEAN CORPUSCULAR HGB CONC 34 g/dL (32-36); MEAN CORPUSCULAR VOLUME 90 fL (80-99); MEAN PLATELET VOLUME 10.6 fL (9.0-12.2); MONOCYTES # (AUTO) 0.7 10^3/uL (0.0-1.0); MONOCYTES % (AUTO) 6 % (0-12); NEUTROPHILS # (AUTO) 7.3 10^3/uL (1.8-7.8); NEUTROPHILS % (AUTO) 65 % (42-75); PLATELET COUNT 312 10^3/uL (130-400); WHITE BLOOD COUNT 11.2 10^3/uL (4.3-11.0)
[2021-06-15 08:05] LABS: POTASSIUM 3.5 MMOL/L (3.6-5.0)
[2021-06-15 08:06] LABS: CALCIUM 9.1 MG/DL (8.5-10.1)
[2021-06-15 08:10] LABS: CREATININE SERUM 0.65 MG/DL (0.60-1.30)
--- NOTE | 2021-06-15 09:41 | Diagnostic Imaging Report ---
Indication: 1st trimester bleeding. Findings: There is an intrauterine gestational sac which contains a tiny area of nodular nonvascularized structure which may be debris. No viable gestation. No identifiable cardiac activity yolk sac or convincing embryonic pole. Blighted ovum presumed. The gestational sac measures a average diameter 4.4 cm correlating with an age 10 week 1 day. No evidence for extrauterine gestation. No adnexal abnormality or free fluid. Impression: 1. Irregular intrauterine gestational sac with no viable gestation consistent with blighted oval sac measures 10 week 1 day. 2. No evidence for extrauterine gestation. Dictated by: Dictated on workstation # [id number]
[2021-06-15 10:49] VITALS: BP 152/100
== END 2021-06-15 10:54 | disposition home or self-care (01) ==
LOC: EDUNIT# 06:58 → ER 07:02
DX: O03.9 Complete or unspecified spontaneous abortion without complication (principal); O02.0 Blighted ovum and nonhydatidiform mole; F17.290 Nicotine dependence, other tobacco product, uncomplicated
CPT/HCPCS: 36415; 76801; 76817; 80048; 81000; 84702; 84703; 85025; 86900; 86901

== ENCOUNTER 2021-06-20 16:37 | Emergency (ER) | payer MEDICAID ==
[~2021-06-20] VITALS: Ht 162.5 cm; Wt 95.3 kg
[2021-06-20] MEDS ORDERED: fentaNYL INJ 100 MCG/2 ML AMP IVP STA (16:50)
--- NOTE | 2021-06-20 16:55 | ED GU-Female ---
General Stated Complaint: 11 WKS - VAGINAL BLEEDING Source: patient Exam Limitations: no limitations History of Present Illness Date Seen by Provider: June 20, 2021 Time Seen by Provider: 16:52 Initial Comments Patient is a 25-year-old female who presents ED with pelvic pain, back pain and left leg pain. Symptoms started on Monday. Patient was seen here on Monday and diagnosed with potential miscarriage. Noted blighted ovum With a intrauterine gestational sac measuring 10 weeks 1 day. She states she started having heavier bleeding more notable last night. She went through 6 pads with heavy blood clots. Bleeding proved today but having worsening pain in her lower pelvic back and left leg. Has been taken Tylenol ibuprofen without much improvement. Patient is G2, P1. Denies of any urinary symptoms, vomiting, diarrhea, chest pain, shortness of breath. She denies history of anemia or any blood thinners. Denies fever, chills, body aches, headache. Patient is A positive. Patient is a positive Allergies and Home Medications Allergies Coded Allergies: No Known Drug Allergies (Unverified , 05/17/19) Patient Home Medication List Home Medication List Reviewed: Yes Buspirone HCl (Buspirone HCl) 15 Mg Tablet, 15 MG PO BID, (Reported) Entered as Reported by: JOEL ZELAYA on 10/10/19 1419 Cephalexin (Cephalexin) 500 Mg Tablet, 500 MG PO TID Prescribed by: CONNOR CHAVEZ on 06/20/21 1855 Hydrocodone/Acetaminophen (Hydrocodone-Acetamin 5-325 mg) 5 Mg-325 Mg Tablet, 1 TAB PO Q4H PRN for PAIN-MODERATE (5-7) Prescribed by: CONNOR CHAVEZ on 06/20/21 1818 Ondansetron (Ondansetron Odt) 4 Mg Tab.rapdis, 4 MG PO DAILY, (Reported) Entered as Reported by: JOEL ZELAYA on 10/10/19 142 Vit/Iron Fumarate/FA ( Tablet) 1 Each Tablet, 1 EACH PO DAILY, (Reported) Entered as Reported by: JOEL ZELAYA on 10/10/19 1420 Review of Systems Review of Systems Constitutional: No chills, No diaphoresis, No malaise, No weakness EENTM: No ear pain, No blurred vision, No double vision, No mouth pain, No mouth swelling Respiratory: No cough, No dyspnea on exertion Cardiovascular: No chest pain Gastrointestinal: abdominal pain; No diarrhea, No nausea, No vomiting Genitourinary: denies burning, denies discharge, denies dysuria, denies frequency, denies flank pain; other (Vaginal bleeding) Musculoskeletal: No back pain, No joint pain Skin: No change in color, No change in hair/nails All Other Systemes Reviewed Negative Unless Noted: Yes Past Gmtvpol-Ftznec-Iwmiun Hx Seasonal Allergies Seasonal Allergies: No Past Medical History Surgeries: Yes Tonsillectomy Respiratory: No Cardiac: No Neurological: No Genitourinary: No Gastrointestinal: No Musculoskeletal: No Endocrine: No HEENT: No Cancer: No Psychosocial: Yes Sleep Difficulties, Depression Integumentary: No Blood Disorders: No Family Medical History No Pertinent Family Hx Physical Exam Vital Signs Vital Signs - First Documented 06/20/21 16:45 Temp 37.3 Pulse 82 Resp 16 B/P (MAP) 131/86 (101) Pulse Ox 99 O2 Delivery Room Air Capillary Refill : Height, Weight, BMI Height: '" Weight: lbs. oz. kg; 36.00 BMI Method: General Appearance: WD/WN, no apparent distress HEENT: PERRL/EOMI, normal ENT inspection, TMs normal, pharynx normal Neck: non-tender, full range of motion, supple Cardiovascular: regular rate, rhythm, no edema, no gallop, no JVD Respiratory: chest non-tender, lungs clear, normal breath sounds, no respiratory distress Gastrointestinal: normal bowel sounds, non tender, soft, no organomegaly, no pulsatile mass, other (Suprapubic tenderness on palpation. Normal bowel sounds throughout. No rebound or guarding) Back: normal inspection, no CVA tenderness, no vertebral tenderness Extremities: normal range of motion, non-tender, normal inspection Neurologic/Psychiatric: hose finisher II-XII nml as tested, no motor/sensory deficits, alert, normal mood/affect, oriented x 3 Skin: normal color, warm/dry Progress/Results/Core Measures Suspected Sepsis SIRS Temperature: Pulse: Respiratory Rate: Laboratory Tests 06/20/21 16:55: White Blood Count 12.7H Blood Pressure / Mean: Laboratory Tests 06/20/21 16:55: Creatinine 0.69, Platelet Count 318, Total Bilirubin 0.3 Results/Orders Lab Results Laboratory Tests Test 06/20/21 16:55 06/20/21 18:25 Range/Units White Blood Count 12.7 H 4.3-11.0 10^3/uL Red Blood Count 4.18 3.80-5.11 10^6/uL Hemoglobin 13.0 11.5-16.0 g/dL Hematocrit 38 35-52 % Mean Corpuscular Volume 92 80-99 fL Mean Corpuscular Hemoglobin 31 25-34 pg Mean Corpuscular Hemoglobin Concent 34 32-36 g/dL Red Cell Distribution Width 12.8 10.0-14.5 % Platelet Count 318 130-400 10^3/uL Mean Platelet Volume 10.5 9.0-12.2 fL Immature Granulocyte % (Auto) 1 % Neutrophils (%) (Auto) 67 42-75 % Lymphocytes (%) (Auto) 24 12-44 % Monocytes (%) (Auto) 6 0-12 % Eosinophils (%) (Auto) 3 0-10 % Basophils (%) (Auto) 0 0-10 % Neutrophils # (Auto) 8.5 H 1.8-7.8 10^3/uL Lymphocytes # (Auto) 3.0 1.0-4.0 10^3/uL Monocytes # (Auto) 0.8 0.0-1.0 10^3/uL Eosinophils # (Auto) 0.3 0.0-0.3 10^3/uL Basophils # (Auto) 0.1 0.0-0.1 10^3/uL Immature Granulocyte # (Auto) 0.1 0.0-0.1 10^3/uL Sodium Level 137 135-145 MMOL/L Potassium Level 3.7 3.6-5.0 MMOL/L Chloride Level 103 98-107 MMOL/L Carbon Dioxide Level 20 L 21-32 MMOL/L Anion Gap 14 5-14 MMOL/L Blood Urea Nitrogen 9 7-18 MG/DL Creatinine 0.69 0.60-1.30 MG/DL Estimat Glomerular Filtration Rate 123 BUN/Creatinine Ratio 13 Glucose Level 95 70-105 MG/DL Calcium Level 9.4 8.5-10.1 MG/DL Corrected Calcium 9.3 8.5-10.1 MG/DL Total Bilirubin 0.3 0.1-1.0 MG/DL Aspartate Amino Transf (AST/SGOT) 11 5-34 U/L Alanine Aminotransferase (ALT/SGPT) 14 0-55 U/L Alkaline Phosphatase 60 40-136 U/L Total Protein 7.7 6.4-8.2 GM/DL Albumin 4.1 3.2-4.5 GM/DL Human Chorionic Gonadotropin, Quant 3193 H <5 MIU/ML Urine Color RED H Urine Clarity CLOUDY Urine pH 5.0 5-9 Urine Specific [place] >=1.030 1.016-1.022 Urine Protein 2+ H NEGATIVE Urine Glucose (UA) NEGATIVE NEGATIVE Urine Ketones TRACE H NEGATIVE Urine Nitrite POSITIVE H NEGATIVE Urine Bilirubin NEGATIVE NEGATIVE Urine Urobilinogen 1.0 < = 1.0 MG/DL Urine Leukocyte Esterase TRACE H NEGATIVE Urine RBC (Auto) 3+ H NEGATIVE Urine RBC TNTC H /HPF Urine WBC 25-50 H /HPF Urine Squamous Epithelial Cells 2-5 /HPF Urine Crystals NONE /LPF Urine Bacteria LARGE H /HPF Urine Casts NONE /LPF Urine Mucus SMALL H /LPF Urine Culture Indicated YES My Orders Orders - STACEY STALEY Cbc With Automated Diff (06/20/21 16:41) Comprehensive Metabolic Panel (06/20/21 16:41) Hcg,Quantitative (06/20/21 16:41) Fentanyl Inj (Sublimaze Injection) (06/20/21 16:50) Morphine Injection (Morphine Injection (06/20/21 17:15) Ua Culture If Indicated (06/20/21 17:18) Rx-Hydrocodone/Apap 5-325 Mg (Rx-Vicodin (06/20/21 18:15) Morphine Injection (Morphine Injection (06/20/21 18:15) Urine Culture (06/20/21 18:25) Cephalexin Capsule (Keflex Capsule) (06/20/21 18:54) Medications Given in ED Current Medications Medications Dose Ordered Sig/Guillermo Route Start Time Stop Time Status Last Admin Dose Admin Acetaminophen/ Hydrocodone Bitart 1 ea ONCE ONCE PO 06/20/21 18:15 06/20/21 18:16 DC 06/20/21 18:34 1 EA Morphine Sulfate 4 mg ONCE ONCE IVP 06/20/21 17:15 06/20/21 17:16 DC 06/20/21 17:29 4 MG Morphine Sulfate 4 mg ONCE ONCE IVP 06/20/21 18:15 06/20/21 18:16 DC 06/20/21 18:29 4 MG Vital Signs/I&O 06/20/21 06/20/21 16:45 19:09 Temp 37.3 Pulse 82 81 Resp 16 16 B/P (MAP) 131/86 (101) 125/81 Pulse Ox 99 99 O2 Delivery Room Air Room Air Capillary Refill : Departure Communication (PCP) Patient was seen here on the 10th diagnosed with blighted ovum. Continue pain with heavy vaginal bleeding. Bleeding improved today but did go through 6 pads yesterday. Patient without any urinary symptoms. No vomiting, fever. She is not anemic. Slight elevated white blood count 12.7. Vital signs stable. Was given several rounds of pain medication with improvement of pain. Patient would likely benefit with potential D & C. Discussed patient with Dr. Zelaya who is on -call for [facility] who recommends following up with Dr. Tolentino who is her OB in the morning to discuss getting further plan. Dr. Zelaya felt like patient would likely benefit with D & C and to follow up in the morning as long as she is stable and feeling better. Refused pelvic exam. Patient states she does feel better however concerned that this may potentially worsen. Will discharge her with pain medication and provided a dose pack here. We will will send pain medication to her pharmacy. Patient Is scheduled to follow-up in the morning. Return precautions were discussed with patient. A positive blood. She does not need RhoGAM. Urinalysis concerning for UTI. Patient was given dose of Keflex will discharge with Keflex. Follow-up with Dr. Tolentino in the morning Impression Primary Impression: Miscarriage Disposition: 01 HOME, SELF-CARE Condition: Stable Departure-Patient Inst. Decision time for Depature: 18:16 Referrals: [facility] (PCP/Family) Primary Care Physician TORIE TOLENTINO MD Patient Instructions: Miscarriage (DC) Scripts Cephalexin (Cephalexin) 500 Mg Tablet 500 MG PO TID for 10 Days, #30 TAB Prov: STACEY STALEY 06/20/21 Hydrocodone/Acetaminophen (Hydrocodone-Acetamin 5-325 mg) 5 Mg-325 Mg Tablet 1 TAB PO Q4H PRN for PAIN-MODERATE (5-7), #8 TAB Prov: STACEY STALEY 06/20/21 Work/School Note: Work Release Form Date Seen in the Emergency Department: June 20, 2021 Return to Work: June 23, 2021 STACEY STALEY June 20, 2021 16:55
[2021-06-20 17:02] LABS: BASOPHILS # (AUTO) 0.1 10^3/uL (0.0-0.1); BASOPHILS % (AUTO) 0 % (0-10); EOSINOPHILS # (AUTO) 0.3 10^3/uL (0.0-0.3); EOSINOPHILS % (AUTO) 3 % (0-10); HEMATOCRIT 38 % (35-52); LYMPHOCYTES % (AUTO) 24 % (12-44); MEAN CORPUSCULAR HEMOGLOBIN 31 pg (25-34); MEAN CORPUSCULAR HGB CONC 34 g/dL (32-36); MEAN CORPUSCULAR VOLUME 92 fL (80-99); MEAN PLATELET VOLUME 10.5 fL (9.0-12.2); MONOCYTES # (AUTO) 0.8 10^3/uL (0.0-1.0); MONOCYTES % (AUTO) 6 % (0-12); NEUTROPHILS # (AUTO) 8.5 10^3/uL (1.8-7.8); NEUTROPHILS % (AUTO) 67 % (42-75); PLATELET COUNT 318 10^3/uL (130-400); WHITE BLOOD COUNT 12.7 10^3/uL (4.3-11.0)
[2021-06-20 17:12] LABS: ALBUMIN 4.1 GM/DL (3.2-4.5); POTASSIUM 3.7 MMOL/L (3.6-5.0)
[2021-06-20 17:13] LABS: CALCIUM 9.4 MG/DL (8.5-10.1)
[2021-06-20 17:15] LABS: TOTAL PROTEIN 7.7 GM/DL (6.4-8.2)
[2021-06-20] MEDS ORDERED: morphine INJ 10 MG/ML 1ML (SYR OR VIAL) IVP ONE ×2 (17:15→18:15)
[2021-06-20 17:16] LABS: BILIRUBIN,TOTAL 0.3 MG/DL (0.1-1.0)
[2021-06-20 17:18] LABS: CREATININE SERUM 0.69 MG/DL (0.60-1.30)
[2021-06-20] MEDS ORDERED: ACHD5005 PO (18:18)
[2021-06-20 18:33] LABS: BILIRUBIN,URINE NEGATIVE (NEGATIVE); CLARITY,URINE CLOUDY; COLOR,URINE RED; GLUCOSE, URINE (UA) NEGATIVE (NEGATIVE); KETONES,URINE TRACE (NEGATIVE); LEUKOCYTE ESTERASE ,URINE TRACE (NEGATIVE); NITRITE,URINE POSITIVE (NEGATIVE); PROTEIN,URINE 2+ (NEGATIVE)
[2021-06-20 18:41] LABS: BACTERIA,URINE LARGE /HPF; RBC,URINE TNTC /HPF; WBC,URINE 25-50 /HPF
[2021-06-20] MEDS ORDERED: CEPHALEXIN 250 MG (KEFLEX) CAP PO STA (18:54)
[2021-06-20] MEDS ORDERED: CEPH500T PO (18:55)
[2021-06-20 19:09] VITALS: BP 125/81
[2021-06-21] MEDS ORDERED: OXYC-199 PO (14:08)
[2021-06-21] MEDS ORDERED: NITR-65 PO (14:08)
== END 2021-06-20 19:09 | disposition home or self-care (01) ==
LOC: EDUNIT# 16:37 → ER 16:38
DX: O03.9 Complete or unspecified spontaneous abortion without complication (principal)
CPT/HCPCS: 36415; 80053; 81000; 84702; 85025; 87088

== ENCOUNTER 2021-06-21 11:41 | Emergency (ER) | payer MEDICAID ==
[~2021-06-21 11:41] MED LIST changes: +ACHD5005 PO; +CEPH500T PO
--- NOTE | 2021-06-21 12:36 | ED GU-Female ---
General Chief Complaint: - Reproductive Stated Complaint: 10 WKS PREG - VAGINAL BLEEDING / ABD PAIN Nursing Triage Note: PT AMB TO [facility] WITH C/O HAVING A MISCARIAGE AND PAIN WITH BLEEDING ALSO. PT SEEN HERE YESTERDAY FOR SAME COMPLAINT Source: patient, family () Exam Limitations: no limitations History of Present Illness Date Seen by Provider: June 21, 2021 Time Seen by Provider: 12:28 Initial Comments Patient is a 25-year-old female chief complaint of miscarriage with severe pelvic cramping/pain and vaginal bleeding. Patient states she was seen here yesterday and required IV morphine for pain control. She was discharged to follow-up with Dr. Navarrete. Apparently last night she had worsening pain and was up all night with the cramping. Hydrocodone is not taking care of her pain. Her states that he spoke with Dr. Ryan and he believes that she needs a D&C. Patient denies any fevers or chills. She states she currently has a urinary tract infection but has not picked up her antibiotics yet today. No vomiting. No problems with bowel movements. No allergies to medications. Per review of the medical record the patient was seen on June 15 and had an ultrasound which showed her to be approximately 10 weeks and 1 day with a blighted ovum. All other review of systems reviewed and negative except as stated. Timing/Duration: week, getting worse Severity/Quality: cramping Location: suprapubic Radiation: none Activities at Onset: none Allergies and Home Medications Allergies Coded Allergies: No Known Drug Allergies (Unverified , 05/17/19) Patient Home Medication List Home Medication List Reviewed: Yes Nitrofurantoin Monohyd/M-Cryst (Macrobid 100 mg Capsule) 100 Mg Capsule, 1 TAB PO BID Prescribed by: DONOVAN GUALLPA on 06/21/21 1408 Oxycodone HCl/Acetaminophen (Percocet 5-325 mg Tablet) 5 Mg-325 Mg Tablet, 1 TAB PO Q6H PRN for PAIN-MODERATE Prescribed by: DONOVAN GUALLPA on 06/21/21 1409 Discontinued Medications Buspirone HCl (Buspirone HCl) 15 Mg Tablet, 15 MG PO BID, (Reported) Discontinued Reason: No Longer Taking Entered as Reported by: JOEL ZELAYA on 10/10/19 1419 Cephalexin (Cephalexin) 500 Mg Tablet, 500 MG PO TID Discontinued Reason: No Longer Taking Prescribed by: CONNOR CHAVEZ on 06/20/21 1855 Hydrocodone/Acetaminophen (Hydrocodone-Acetamin 5-325 mg) 5 Mg-325 Mg Tablet, 1 TAB PO Q4H PRN for PAIN-MODERATE (5-7) Discontinued Reason: No Longer Taking Prescribed by: CONNOR CHAVEZ on 06/20/21 1818 Ondansetron (Ondansetron Odt) 4 Mg Tab.rapdis, 4 MG PO DAILY, (Reported) Discontinued Reason: No Longer Taking Entered as Reported by: JOEL ZELAYA on 10/10/19 142 Vit/Iron Fumarate/FA ( Tablet) 1 Each Tablet, 1 EACH PO DAILY, (Reported) Discontinued Reason: No Longer Taking Entered as Reported by: JOEL ZELAYA on 10/10/19 142 Review of Systems Review of Systems Constitutional: see HPI EENTM: no symptoms reported Respiratory: no symptoms reported Cardiovascular: no symptoms reported Gastrointestinal: abdominal pain : Yes LMP: Mar 23, 2021 Musculoskeletal: no symptoms reported Skin: no symptoms reported Psychiatric/Neurological: No Symptoms Reported All Other Systemes Reviewed Negative Unless Noted: Yes Past Gmettvy-Aejuqg-Fvgxdc Hx Patient Social History Tobacco Use?: No Use of E-Cig and/or Vaping dev: Yes E-Cig or Vaping type used: Nicotine Use of E-Cig and/or Vaping Manny: Current Everyday User Substance use?: No Alcohol Use?: No Pt feels they are or have been: No Immunizations Up To Date First/Initial COVID19 Vaccinat: NA Second COVID19 Vaccination David: NA Seasonal Allergies Seasonal Allergies: No Past Medical History Surgeries: Yes Tonsillectomy Respiratory: No Cardiac: No Neurological: No Genitourinary: No Gastrointestinal: No Musculoskeletal: No Endocrine: No HEENT: No Cancer: No Psychosocial: Yes Sleep Difficulties, Depression Integumentary: No Blood Disorders: No Family Medical History No Pertinent Family Hx Physical Exam Vital Signs Vital Signs - First Documented 06/21/21 12:03 Temp 36.6 Pulse 98 Resp 18 B/P (MAP) 120/72 (88) Capillary Refill : Height, Weight, BMI Height: '" Weight: lbs. oz. kg; 36.00 BMI Method: General Appearance: WD/WN, no apparent distress HEENT: PERRL/EOMI Neck: full range of motion Cardiovascular: regular rate, rhythm (HR upper 90's) Respiratory: lungs clear, normal breath sounds, no respiratory distress, no accessory muscle use Gastrointestinal: soft, tenderness (mild suprapubic tenderness) Pelvic: other (deferred) Back: no CVA tenderness Extremities: normal range of motion, normal inspection, no pedal edema Neurologic/Psychiatric: alert, normal mood/affect, oriented x 3 Skin: normal color, warm/dry Progress/Results/Core Measures Suspected Sepsis SIRS Temperature: Pulse: 98 Respiratory Rate: 18 Blood Pressure 120 /72 Mean: 88 Results/Orders My Orders Orders - DONOVAN GUALLPA MD Ob Transvaginal [id number] (06/21/21 12:44) Ketorolac Injection (Toradol Injection) (06/21/21 13:30) Oxycodone/Apap 5/325mg Tablet (Percocet (06/21/21 13:30) Medications Given in ED Vital Signs/I&O Capillary Refill : Blood Pressure Mean: 88 Progress Note : Time: 12:45 Progress Note Discussed with Dr. Kim on for [facility]. He recommends repeat imaging today. Would also recommend calling the [facility] office and getting her an appointment later in the week to schedule for D&C. As long as the ultrasound looks okay and there are no significantly concerning findings she will be fine to wait until the end of the week. My plan would be to change around her pain medications so that we might to get better pain control in the interim. Departure Impression Primary Impression: Miscarriage Additional Impression: Blighted ovum Disposition: 01 HOME, SELF-CARE Condition: Stable Departure-Patient Inst. Decision time for Depature: 14:05 Referrals: [facility] (PCP/Family) Primary Care Physician ANNY CASTILLO MD Patient Instructions: Miscarriage (DC) Add. Discharge Instructions: Drink plenty of fluids to stay well-hydrated. Start taking your antibiotics today, twice a day for the next 5 days. Oxycodone, 1 tablet every 6 hours with food as needed for severe pain. You should also take Aleve [id number] 2 pills in the morning with food and 2 p ills in the evening with food as needed for pain. If you develop worse pain especially with fever over 101 please come back to the emergency room for reevaluation. You have been scheduled to see Dr. CASTILLO tomorrow morning at 815. Please bring your insurance card and ID. Scripts Nitrofurantoin Monohyd/M-Cryst (Macrobid 100 mg Capsule) 100 Mg Capsule 1 TAB PO BID, #10 CAP Prov: DONOVAN GUALLPA MD 06/21/21 Oxycodone HCl/Acetaminophen (Percocet 5-325 mg Tablet) 5 Mg-325 Mg Tablet 1 TAB PO Q6H PRN for PAIN-MODERATE MDD 6, #12 TAB Prov: DONOVAN GUALLPA MD 06/21/21 Copy Copies To 1: ANNY CASTILLO MD, KATHRYN M MD June 21, 2021 12:36
[2021-06-21] MEDS ORDERED: oxyCODONE/APAP 5/325MG (PERCOCET 5) TABLET PO ONE (13:30)
[2021-06-21] MEDS ORDERED: KETOROLAC 30 MG/ML VIAL IM ONE (13:30)
--- NOTE | 2021-06-21 13:54 | Diagnostic Imaging Report ---
Indication: A blighted ovum. Compared with study 06/15/2021. An irregular gestational sac is migrated inferiorly and is now partly within the endocervical canal and partly within the uterine endometrium. No independent cardiac activity. No extrauterine gestation. No adnexal lesion. IMPRESSION: Blighted ovum in its irregular gestational sac is migrating distally and now about half of it within the distended endocervical canal, the remaining half within the lower uterine endometrial canal. Dictated by: Dictated on workstation # [id number]
[2021-06-21] MEDS ORDERED: NITR-65 PO (14:08)
[2021-06-21] MEDS ORDERED: OXYC-199 PO (14:08)
[2021-06-21 14:21] VITALS: BP 118/74
== END 2021-06-21 14:22 | disposition home or self-care (01) ==
LOC: EDUNIT# 11:41 → ER 11:42
DX: O03.9 Complete or unspecified spontaneous abortion without complication (principal); O02.0 Blighted ovum and nonhydatidiform mole; F17.290 Nicotine dependence, other tobacco product, uncomplicated
CPT/HCPCS: 76817

== ENCOUNTER 2021-06-22 10:40 | Day surgery (SDC) | payer MEDICAID ==
[~2021-06-22] VITALS: Ht 162.6 cm; Wt 95.5 kg
[2021-06-22] VITALS (12 sets, daily range): BP systolic 87–113; BP diastolic 51–87
[~2021-06-22 10:40] MED LIST changes: +NITR-65 PO; +OXYC-199 PO
[2021-06-22] MEDS: LACTATED RINGERS 1,000 ML IV PRN ×2 (11:25→12:21)
[2021-06-22] MEDS ORDERED: MIDAZOLAM 2 MG/2 ML (VERSED) VIAL ONE ×2 (11:40→11:43)
[2021-06-22 11:42] LABS: BASOPHILS % (AUTO) 0 % (0-10); EOSINOPHILS # (AUTO) 0.2 10^3/uL (0.0-0.3); EOSINOPHILS % (AUTO) 2 % (0-10); HEMATOCRIT 36 % (35-52); HEMOGLOBIN 12.4 g/dL (11.5-16.0); LYMPHOCYTES # (AUTO) 2.2 10^3/uL (1.0-4.0); LYMPHOCYTES % (AUTO) 23 % (12-44); MEAN CORPUSCULAR HEMOGLOBIN 32 pg (25-34); MEAN CORPUSCULAR HGB CONC 34 g/dL (32-36); MEAN CORPUSCULAR VOLUME 93 fL (80-99); MEAN PLATELET VOLUME 10.3 fL (9.0-12.2); MONOCYTES # (AUTO) 0.4 10^3/uL (0.0-1.0); MONOCYTES % (AUTO) 4 % (0-12); NEUTROPHILS # (AUTO) 6.6 10^3/uL (1.8-7.8); NEUTROPHILS % (AUTO) 70 % (42-75); PLATELET COUNT 278 10^3/uL (130-400); WHITE BLOOD COUNT 9.4 10^3/uL (4.3-11.0)
[2021-06-22] MEDS ORDERED: proPOfol 200 MG/20 ML (DIPRIVAN) VIAL IV ONE (11:42)
[2021-06-22] MEDS ORDERED: SEVOFLURANE (ULTANE) 15 ML INHAL SOLN ONE (11:42)
[2021-06-22] MEDS ORDERED: ONDANSETRON 4 MG/2 ML (SDV) Z0FRAN ONE (11:42)
[2021-06-22] MEDS ORDERED: LIDOCAINE PF 2% 5 ML (XYLOCAINE) VIAL ONE (11:42)
[2021-06-22] MEDS ORDERED: fentaNYL INJ 100 MCG/2 ML AMP ONE (11:42)
[2021-06-22] MEDS ORDERED: MIDAZOLAM 2 MG/2 ML (VERSED) VIAL IV ONE (11:45)
--- NOTE | 2021-06-22 12:23 | Progress Note-Pre Operative ---
Pre-Operative Progress Note H&P Reviewed The H&P was reviewed, patient examined and no changes noted. Date Seen by Provider: June 22, 2021 Time Seen by Provider: 12:23 Date H&P Reviewed: June 22, 2021 Time H&P Reviewed: 12:23 Pre-Operative Diagnosis: Missed /blighted ovum ANNY CASTILLO MD June 22, 2021 12:23
--- NOTE | 2021-06-22 12:24 | Progress Note-Post Operative ---
Post-Operative Progess Note Surgeon (s)/Huller Operator (s) Surgeon ANNY CASTILLO MD Huller Operator: None Pre-Operative Diagnosis Missed /blighted ovum Post-Operative Diagnosis Same with pathology pending Procedure & Operative Findings Date of Procedure 06/22/21 Procedure Performed/Findings D&C for blighted ovum/missed AB at 10 weeks gestation Anesthesia Type General Estimated Blood Loss Estimated blood loss (mL): 300cc Specimens/Packing Specimens Removed Uterine contents/products of conception ANNY CASTILLO MD June 22, 2021 12:24
--- NOTE | 2021-06-22 12:25 | Discharge Inst-Surgical ---
Discharge Inst-Surgical Depart Medication/Instructions New, Converted or Re-Newed RX: Other Consults/Follow Up Orders & Referrals Follow Up Appt: Call to make follow up appt. for patient in 2 weeks. Activity: Rest for 24 hours, than as tolerated. May use [id number] Motrin/Advil or Aleve for pain as needed Diet: As tolerated- may shower or tub bathe as desired. No driving for 24 hours, no alcoholic beverages for 24 hours, and nothing per vagina (no tampons, douching, or intercoarse) for 2 weeks. Patient to return to the clinic as soon as possible for: Temperature greater than 101F, Severe Pain, Foul discharge from incision or vagina, Excessive Bleeding (more than a period). Activity Activity as Tolerated: No Diet Discharge Diet: No Restrictions ANNY CASTILLO MD June 22, 2021 12:25
[2021-06-22] MEDS ORDERED: PROMETHAZINE INJ 25 MG/ML (PHENERGAN) AMP IM ONE (12:30)
[2021-06-22] MEDS ORDERED: D5 LR IV SOLUTION 1,000 ML IV SCH (12:30)
[2021-06-22] MEDS ORDERED: KETOROLAC 30 MG/ML VIAL IVP ONE (12:30)
[2021-06-22] MEDS ORDERED: MEPERIDINE (DEMEROL) INJ 100 MG/ML IM ONE (12:30)
[2021-06-22] MEDS ORDERED: ONDANSETRON 4 MG/2 ML (SDV) Z0FRAN IVP PRN ×2 (12:30→13:00)
[2021-06-22] MEDS ORDERED: morphine INJ 10 MG/ML 1ML (SYR OR VIAL) IVP ONE (13:00)
--- NOTE | 2021-06-22 13:09 | Anesthesia-General Post-Op ---
General Patient Condition Mental Status/LOC: Same as Preop Cardiovascular: Satisfactory Nausea/Vomiting: Absent Respiratory: Satisfactory Pain: Controlled Complications: Absent Post Op Complications Complications None Follow Up Care/Instructions Patient Instructions None needed. Anesthesia/Patient Condition Patient Condition Patient is doing well in PACU, no complaints, stable vital signs, no apparent adverse anesthesia problems. CARRILLO FRIAS DO June 22, 2021 13:09
--- NOTE | 2021-06-23 13:49 | OPERATIVE REPORT ---
DATE OF SERVICE: 06/22/2021 PREOPERATIVE DIAGNOSES: Missed /blighted ovum. POSTOPERATIVE DIAGNOSIS: Missed /blighted ovum. OPERATIVE PROCEDURE: D and C for first trimester missed . OPERATIVE DESCRIPTION: With the patient in the supine position under satisfactory general anesthesia, she was repositioned in dorsal lithotomy position in the [facility] and prepped and draped in the usual fashion for vaginal surgery. Urinary bladder was emptied with a red Ambrocio catheter. A weighted speculum placed in the posterior fornix of vagina, cervix exposed and grasped anteriorly with single tooth tenaculum. Uterus was sounded to 14 cm. The cervix was then serially dilated to a #10 Hegar dilator. A #10 curved suction curette was then introduced and the uterine cavity curettaged with removal of a large amount of trophoblastic and decidual appearing tissue, blood clot, amniotic fluid and debris. The endometrial cavity was then sharply curettaged in all 4 quadrants to good uterine cry. Curved suction curette was reintroduced. All blood clot and debris evacuated from the uterus. The suction curette was removed as was the tenaculum from the lip of the cervix. There was no bleeding from the puncture sites of the tenaculum. There was minimal oozing from the cervical os. The uterus was decreased in size from 10 to 12-week size prior to the procedure and after about 8-week sized uterus was compressed nicely and there was very minimal bleeding. Sponge and needle counts were correct on completion of procedure. Blood loss was between 100 and 300 mL. There was quite a bit of amniotic fluid that was captured with the blood as well. The patient was uneventfully awakened from her general anesthesia and transferred to the recovery room in stable condition. The patient tolerated the procedure well. Job ID: [id number] DocumentID: [id number] Dictated Date: 06/23/2021 08:46:34 Community Engagement Representative Date: 06/23/2021 13:48:56 Dictated By: ANNY CASTILLO MD
== END 2021-06-22 14:35 | disposition home or self-care (01) ==
LOC: SDC 10:40
PROVIDERS: ATTEND Obstetrics & Gynecology
DX: O02.0 Blighted ovum and nonhydatidiform mole (principal); F17.290 Nicotine dependence, other tobacco product, uncomplicated; Z3A.10 10 weeks gestation of pregnancy
CPT/HCPCS: 36415; 85025; 86850; 86900; 86901; 87081

== ENCOUNTER 2021-06-26 13:35 | Emergency (ER) | payer MEDICAID ==
[~2021-06-26] VITALS: Ht 162.5 cm; Wt 95.2 kg
[2021-06-26 13:59] LABS: BASOPHILS # (AUTO) 0.1 10^3/uL (0.0-0.1); BASOPHILS % (AUTO) 1 % (0-10); EOSINOPHILS # (AUTO) 0.2 10^3/uL (0.0-0.3); EOSINOPHILS % (AUTO) 2 % (0-10); HEMATOCRIT 38 % (35-52); HEMOGLOBIN 12.7 g/dL (11.5-16.0); LYMPHOCYTES # (AUTO) 3.3 10^3/uL (1.0-4.0); LYMPHOCYTES % (AUTO) 30 % (12-44); MEAN CORPUSCULAR HEMOGLOBIN 31 pg (25-34); MEAN CORPUSCULAR HGB CONC 34 g/dL (32-36); MEAN CORPUSCULAR VOLUME 93 fL (80-99); MEAN PLATELET VOLUME 10.3 fL (9.0-12.2); MONOCYTES # (AUTO) 0.5 10^3/uL (0.0-1.0); MONOCYTES % (AUTO) 5 % (0-12); NEUTROPHILS # (AUTO) 6.7 10^3/uL (1.8-7.8); NEUTROPHILS % (AUTO) 61 % (42-75); PLATELET COUNT 306 10^3/uL (130-400); WHITE BLOOD COUNT 10.9 10^3/uL (4.3-11.0)
[2021-06-26 14:13] LABS: BILIRUBIN,URINE NEGATIVE (NEGATIVE); CLARITY,URINE CLEAR; COLOR,URINE YELLOW; GLUCOSE, URINE (UA) NEGATIVE (NEGATIVE); KETONES,URINE NEGATIVE (NEGATIVE); LEUKOCYTE ESTERASE ,URINE NEGATIVE (NEGATIVE); NITRITE,URINE NEGATIVE (NEGATIVE); PH,URINE 6.5 (5-9); PROTEIN,URINE NEGATIVE (NEGATIVE)
[2021-06-26 14:15] LABS: POTASSIUM 3.8 MMOL/L (3.6-5.0)
[2021-06-26 14:16] LABS: CALCIUM 9.1 MG/DL (8.5-10.1)
[2021-06-26 14:20] LABS: BACTERIA,URINE TRACE /HPF
[2021-06-26 14:20] LABS: CREATININE SERUM 0.69 MG/DL (0.60-1.30)
[2021-06-26 15:13] VITALS: BP_SYST 109; BP_SYST 111; BP_SYST 115; BP_DIAS 71; BP_DIAS 77; BP_DIAS 82
--- NOTE | 2021-06-26 15:19 | ED GU-Female ---
General Chief Complaint: - Reproductive Stated Complaint: POST D&C, BLEEDING, DIZZINESS Nursing Triage Note: PT HAD D&C MONDAY THIS WEEK, C/O HEAVY BLEEDING AND LARGE CLOTS, STATES THEY ARE THE SIZE OF A 1/2 DOLLAR. PT ALSO SAYS SINCE MONDAY SHE HAS HAD WORSEINING DIZZINESS AND CONFUSION. Source: patient Exam Limitations: no limitations History of Present Illness Date Seen by Provider: June 26, 2021 Time Seen by Provider: 13:50 Initial Comments Patient to the ER by private conveyance chief complaint of 4 [address] Montano needed D&C for a miscarriage. She has continued to have some bleeding up to a half dollar size clots and passing some membranes according to her and her . She had a UTI prior to the miscarriage and is on her last dose of antibiotics tonight. She is not having any fevers or chills. She says she gets lightheaded when standing for a long time or when standing up from seated position. She sees spots sometimes. She has not passed out. No fevers or chills diarrhea or constipation. She is a with obstetric care under Dr. Navarrete. Procedure demonstrated blood loss between 103 100 mL. Quite a bit of amniotic fluid captured with the blood as well. Allergies and Home Medications Allergies Coded Allergies: No Known Drug Allergies (Unverified , 05/17/19) Patient Home Medication List Home Medication List Reviewed: Yes Nitrofurantoin Monohyd/M-Cryst (Macrobid 100 mg Capsule) 100 Mg Capsule, 1 TAB PO BID Prescribed by: DONOVAN GUALLPA on 06/21/21 1408 Oxycodone HCl/Acetaminophen (Percocet 5-325 mg Tablet) 5 Mg-325 Mg Tablet, 1 TAB PO Q6H PRN for PAIN-MODERATE Prescribed by: DONOVAN GUALLPA on 06/21/21 1409 Discontinued Medications Buspirone HCl (Buspirone HCl) 15 Mg Tablet, 15 MG PO BID, (Reported) Discontinued Reason: No Longer Taking Entered as Reported by: JOEL ZELAYA on 10/10/19 1419 Cephalexin (Cephalexin) 500 Mg Tablet, 500 MG PO TID Discontinued Reason: No Longer Taking Prescribed by: CONNOR CHAVEZ on 06/20/21 1855 Hydrocodone/Acetaminophen (Hydrocodone-Acetamin 5-325 mg) 5 Mg-325 Mg Tablet, 1 TAB PO Q4H PRN for PAIN-MODERATE (5-7) Discontinued Reason: No Longer Taking Prescribed by: CONNOR CHAVEZ on 06/20/21 181 Ondansetron (Ondansetron Odt) 4 Mg Tab.rapdis, 4 MG PO DAILY, (Reported) Discontinued Reason: No Longer Taking Entered as Reported by: JOEL ZELAYA on 10/10/19 142 Vit/Iron Fumarate/FA ( Tablet) 1 Each Tablet, 1 EACH PO DAILY, (Reported) Discontinued Reason: No Longer Taking Entered as Reported by: JOEL ZELAYA on 10/10/191419 Review of Systems Review of Systems Constitutional: No chills, No fever, No malaise EENTM: No ear discharge, No ear pain Respiratory: No cough, No short of breath Cardiovascular: No chest pain, No edema Gastrointestinal: No abdominal pain, No constipation, No diarrhea, No nausea Genitourinary: denies burning, denies dysuria, denies frequency, denies flank pain Musculoskeletal: No back pain, No joint pain Skin: No change in color, No dryness Past Roxvuzq-Xhfhzh-Rpzeuu Hx Patient Social History Tobacco Use?: Yes Use of E-Cig and/or Vaping dev: Yes E-Cig or Vaping type used: Nicotine Use of E-Cig and/or Vaping Manny: Current Everyday User Substance use?: No Alcohol Use?: No Pt feels they are or have been: No Immunizations Up To Date Tetanus Booster (TDap): Unknown First/Initial COVID19 Vaccinat: NA Second COVID19 Vaccination David: NA Third COVID19 Vaccination Date: NA Seasonal Allergies Seasonal Allergies: No Past Medical History Surgeries: Yes (C SECTION) Tonsillectomy Respiratory: No Cardiac: No Neurological: No Genitourinary: No Gastrointestinal: No Musculoskeletal: No Endocrine: No HEENT: No Cancer: No Psychosocial: Yes Sleep Difficulties, Depression Integumentary: No Blood Disorders: No Family Medical History No Pertinent Family Hx Physical Exam Vital Signs Vital Signs - First Documented 06/26/21 13:40 Temp 36.0 Pulse 88 Resp 18 B/P (MAP) 118/82 (94) O2 Delivery Room Air Capillary Refill : Less Than 3 Seconds Height, Weight, BMI Height: '" Weight: lbs. oz. kg; 36.00 BMI Method: General Appearance: WD/WN, mild distress HEENT: PERRL/EOMI, pharynx normal Neck: full range of motion, supple, normal inspection Cardiovascular: normal peripheral pulses, regular rate, rhythm, no edema Respiratory: lungs clear, normal breath sounds, no respiratory distress, no accessory muscle use Gastrointestinal: normal bowel sounds, non tender, soft Extremities: non-tender, normal inspection, no pedal edema, normal capillary refill Neurologic/Psychiatric: alert, normal mood/affect, oriented x 3 Skin: normal color, warm/dry Progress/Results/Core Measures Suspected Sepsis SIRS Temperature: Pulse: 88 Respiratory Rate: 18 Laboratory Tests 06/26/21 13:50: White Blood Count 10.9 Blood Pressure 118 /82 Mean: 94 Laboratory Tests 06/26/21 13:50: Creatinine 0.69, Platelet Count 306 Results/Orders Lab Results Laboratory Tests Test 06/26/21 13:50 06/26/21 14:07 Range/Units White Blood Count 10.9 4.3-11.0 10^3/uL Red Blood Count 4.08 3.80-5.11 10^6/uL Hemoglobin 12.7 11.5-16.0 g/dL Hematocrit 38 35-52 % Mean Corpuscular Volume 93 80-99 fL Mean Corpuscular Hemoglobin 31 25-34 pg Mean Corpuscular Hemoglobin Concent 34 32-36 g/dL Red Cell Distribution Width 12.8 10.0-14.5 % Platelet Count 306 130-400 10^3/uL Mean Platelet Volume 10.3 9.0-12.2 fL Immature Granulocyte % (Auto) 1 % Neutrophils (%) (Auto) 61 42-75 % Lymphocytes (%) (Auto) 30 12-44 % Monocytes (%) (Auto) 5 0-12 % Eosinophils (%) (Auto) 2 0-10 % Basophils (%) (Auto) 1 0-10 % Neutrophils # (Auto) 6.7 1.8-7.8 10^3/uL Lymphocytes # (Auto) 3.3 1.0-4.0 10^3/uL Monocytes # (Auto) 0.5 0.0-1.0 10^3/uL Eosinophils # (Auto) 0.2 0.0-0.3 10^3/uL Basophils # (Auto) 0.1 0.0-0.1 10^3/uL Immature Granulocyte # (Auto) 0.2 H 0.0-0.1 10^3/uL Sodium Level 138 135-145 MMOL/L Potassium Level 3.8 3.6-5.0 MMOL/L Chloride Level 103 98-107 MMOL/L Carbon Dioxide Level 21 21-32 MMOL/L Anion Gap 14 5-14 MMOL/L Blood Urea Nitrogen 10 7-18 MG/DL Creatinine 0.69 0.60-1.30 MG/DL Estimat Glomerular Filtration Rate 123 BUN/Creatinine Ratio 14 Glucose Level 89 70-105 MG/DL Calcium Level 9.1 8.5-10.1 MG/DL Urine Color YELLOW Urine Clarity CLEAR Urine pH 6.5 5-9 Urine Specific [place] 1.020 1.016-1.022 Urine Protein NEGATIVE NEGATIVE Urine Glucose (UA) NEGATIVE NEGATIVE Urine Ketones NEGATIVE NEGATIVE Urine Nitrite NEGATIVE NEGATIVE Urine Bilirubin NEGATIVE NEGATIVE Urine Urobilinogen 0.2 < = 1.0 MG/DL Urine Leukocyte Esterase NEGATIVE NEGATIVE Urine RBC (Auto) 3+ H NEGATIVE Urine RBC 10-25 H /HPF Urine WBC NONE /HPF Urine Squamous Epithelial Cells 2-5 /HPF Urine Crystals NONE /LPF Urine Bacteria TRACE /HPF Urine Casts NONE /LPF Urine Mucus NEGATIVE /LPF Urine Culture Indicated NO My Orders Orders - KIRAN KOO Cbc With Automated Diff (06/26/21 13:37) Basic Metabolic Panel (06/26/21 13:37) Ua Culture If Indicated (06/26/21 13:37) Urine Bedside (06/26/21 14:08) Ed Iv/Invasive Line Start (06/26/21 15:51) Ns Iv 500 Ml (Sodium Chloride 0.9%) (06/26/21 16:00) Ns Iv 500 Ml (Sodium Chloride 0.9%) (06/26/21 15:53) Medications Given in ED Current Medications Medications Dose Ordered Sig/Guillermo Route Start Time Stop Time Status Last Admin Dose Admin Sodium Chloride 500 ml @ 0 mls/hr Q0M ONCE IV 06/26/21 16:00 06/26/21 16:01 DC 06/26/21 15:55 999 MLS/HR Vital Signs/I&O 06/26/21 06/26/21 13:40 15:13 Temp 36.0 Pulse 88 74 75 75 Resp 18 B/P (MAP) 118/82 (94) 111/71 (84) 115/82 (93) 109/77 (88) O2 Delivery Room Air Capillary Refill : Less Than 3 Seconds Blood Pressure Mean: 94 Progress Note #1: Time: 15:18 Progress Note Patient was hesitant to do a speculum exam at this time. Her hemoglobin is 12.7. Her urinalysis looks improved with only a small amount of red blood cells microscopically seen. Her vital signs are normal. Redoing a set of orthostatic vital signs to see if we can provoke orthostasis. Progress Note #2: Time: 16:03 Progress Note Discussed the case with Dr. Montano who agrees the patient is not medically unstable. He has sister reinforced that it is normal to have bleeding up to 2 weeks after D&C. We discussed this and the findings with the patient as well as her negative orthostats. She had to leave work today because she did not feel well so were going to empower her to take a couple more days off and try and restart work on Monday and she is in agreement with this plan. Departure Impression Primary Impression: Post-op bleeding Qualified Codes: N99.820 - Postprocedural hemorrhage of a genitourinary sys tem organ or structure following a genitourinary system procedure Additional Impression: Status post D&C Disposition: 01 HOME, SELF-CARE Condition: Stable Departure-Patient Inst. Decision time for Depature: 16:06 Referrals: [facility] (PCP/Family) Primary Care Physician ANNY MONTANO MD Patient Instructions: Dilation and Curettage (DC) Add. Discharge Instructions: Is not unusual to have some bleeding for up to 2 weeks after a D&C. Return to work when you are feeling up to it or at least by Monday. Follow-up with Dr. Montano if you are not seeing some improvement in your symptoms in 1 to 2 weeks. You may call him if you have questions sooner or you may return to the ER for significantly worsening pain, weakness, shortness of breath etc. All discharge instructions reviewed with patient and/or family. Voiced un derstanding. Work/School Note: Work Release Form Date Seen in the Emergency Department: June 26, 2021 Return to Work: June 28, 2021 Restrictions: No Restrictions KIRAN KOO June 26, 2021 15:18
[2021-06-26] MEDS ORDERED: NS IV 500 ML 500 ML ONE (15:53)
[2021-06-26] MEDS ORDERED: NS IV 500 ML 500 ML IV ONE (16:00)
[2021-06-26 16:27] VITALS: BP 109/71
== END 2021-06-26 16:28 | disposition home or self-care (01) ==
LOC: EDUNIT# 13:35 → ER 13:36
DX: N99.820 Postprocedural hemorrhage of a genitourinary system organ or structure following a genitourinary system procedure (principal); F17.290 Nicotine dependence, other tobacco product, uncomplicated; Z87.59 Personal history of other complications of pregnancy, childbirth and the puerperium
CPT/HCPCS: 36415; 80048; 81000; 84703; 85025

== ENCOUNTER 2021-09-15 14:04 | Emergency (ER) | payer MEDICAID ==
[~2021-09-15] VITALS: Ht 162.5 cm; Wt 95.2 kg
[2021-09-15] MEDS ORDERED: NS IV 1000 ML 1,000 ML IV STA (14:25)
--- NOTE | 2021-09-15 14:29 | ED General ---
General Chief Complaint: COVID19 Suspect/Confirmed Stated Complaint: DIZZINESS,N/V,CONGESTION Source of Information: Patient Exam Limitations: No Limitations History of Present Illness Date Seen by Provider: Sep 15, 2021 Time Seen by Provider: 14:27 Initial Comments Patient is a 25-year-old female who presents the ED for dizziness, li ghtheadedness vomiting abdominal pain cough generalized weakness for the past week and a half. She works at [employer]. She states she has been exposed to COVID. She states she is been feeling more weak over the past few days. Lightheaded dizzy especially with walking. Denies room spinning. She reports some upper abdominal discomfort with intermittent vomiting over the past week and a half. She states she feels dehydrated. She denies any diarrhea. Started a new control month ago. Upper abdominal cramping intermittent. No history of previous abdominal surgery. No urinary symptoms or concern for . Denies chest pain, sore throat, ear pain, visual changes, neck pain, back pain Allergies and Home Medications Allergies Coded Allergies: No Known Drug Allergies (Unverified , 05/17/19) Patient Home Medication List Home Medication List Reviewed: Yes Nitrofurantoin Monohyd/M-Cryst (Macrobid 100 mg Capsule) 100 Mg Capsule, 1 TAB PO BID Prescribed by: DONOVAN GUALLPA on 06/21/21 1408 Oxycodone HCl/Acetaminophen (Percocet 5-325 mg Tablet) 5 Mg-325 Mg Tablet, 1 TAB PO Q6H PRN for PAIN-MODERATE Prescribed by: DONOVAN GUALLPA on 06/21/21 1409 Review of Systems Review of Systems Constitutional: No chills, No diaphoresis; malaise EENTM: No hearing loss, No ear pain, No blurred vision, No double vision, No mouth pain, No mouth swelling Respiratory: cough Gastrointestinal: abdominal pain; No diarrhea; nausea, vomiting Genitourinary: No decreased output, No discharge Skin: No change in color, No change in hair/nails All Other Systems Reviewed Negative Unless Noted: Yes Past Kdercmy-Gucarf-Dghidv Hx Patient Social History Use of E-Cig and/or Vaping dev: Yes E-Cig or Vaping type used: Nicotine Use of E-Cig and/or Vaping Manny: Current Everyday User Substance use?: No Alcohol Use?: No Pt feels they are or have been: No Immunizations Up To Date Tetanus Booster (TDap): Unknown First/Initial COVID19 Vaccinat: NA Second COVID19 Vaccination David: NA Third COVID19 Vaccination Date: NA Seasonal Allergies Seasonal Allergies: No Past Medical History Surgeries: Yes (C SECTION) Tonsillectomy Respiratory: No Cardiac: No Neurological: No Genitourinary: No Gastrointestinal: No Musculoskeletal: No Endocrine: No HEENT: No Cancer: No Psychosocial: Yes Sleep Difficulties, Depression Integumentary: No Blood Disorders: No Family Medical History No Pertinent Family Hx Physical Exam Vital Signs Vital Signs - First Documented 09/15/21 14:10 Temp 37.0 Pulse 96 Resp 14 B/P (MAP) 144/83 (103) Pulse Ox 98 O2 Delivery Room Air Capillary Refill : Height, Weight, BMI Height: '" Weight: lbs. oz. kg; 36.00 BMI Method: General Appearance: No Apparent Distress, WD/WN Eyes: Bilateral Eye Normal Inspection, Bilateral Eye PERRL, Bilateral Eye EOMI HEENT: PERRL/EOMI, TMs Normal, Normal ENT Inspection Neck: Full Range of Motion, Normal Inspection, Non Tender, Supple Respiratory: Chest Non Tender, Lungs Clear, Normal Breath Sounds, No Accessory Muscle Use, No Respiratory Distress Cardiovascular: Regular Rate, Rhythm, No Edema, No Gallop, No JVD, No Murmur Gastrointestinal: Normal Bowel Sounds, No Organomegaly, No Pulsatile Mass, Soft, Tenderness (Gastric tenderness) Back: Normal Inspection, No CVA Tenderness, No Vertebral Tenderness Extremity: Normal Capillary Refill, Normal Inspection, Normal Range of Motion, Non Tender Skin: Normal Color, Warm/Dry Progress/Results/Core Measures Suspected Sepsis SIRS Temperature: Pulse: Respiratory Rate: Laboratory Tests 09/15/21 14:35: White Blood Count 11.4H Blood Pressure / Mean: Laboratory Tests 09/15/21 14:35: Creatinine 0.90, Platelet Count 255, Total Bilirubin 0.4 Results/Orders Lab Results Laboratory Tests Test 09/15/21 14:17 09/15/21 14:25 09/15/21 14:35 09/15/21 15:10 Range/Units Influenza Type A (RT-PCR) Not Detected Not Detecte Influenza Type B (RT-PCR) Not Detected Not Detecte SARS-CoV-2 RNA (RT-PCR) Not Detected Not Detecte Monoscreen NEGATIVE NEGATIVE White Blood Count 11.4 H 4.3-11.0 10^3/uL Red Blood Count 4.80 3.80-5.11 10^6/uL Hemoglobin 15.0 11.5-16.0 g/dL Hematocrit 44 35-52 % Mean Corpuscular Volume 91 80-99 fL Mean Corpuscular Hemoglobin 31 25-34 pg Mean Corpuscular Hemoglobin Concent 35 32-36 g/dL Red Cell Distribution Width 13.4 10.0-14.5 % Platelet Count 255 130-400 10^3/uL Mean Platelet Volume 12.1 9.0-12.2 fL Immature Granulocyte % (Auto) 0 % Neutrophils (%) (Auto) 77 H 42-75 % Lymphocytes (%) (Auto) 18 12-44 % Monocytes (%) (Auto) 4 0-12 % Eosinophils (%) (Auto) 0 0-10 % Basophils (%) (Auto) 0 0-10 % Neutrophils # (Auto) 8.8 H 1.8-7.8 10^3/uL Lymphocytes # (Auto) 2.0 1.0-4.0 10^3/uL Monocytes # (Auto) 0.5 0.0-1.0 10^3/uL Eosinophils # (Auto) 0.0 0.0-0.3 10^3/uL Basophils # (Auto) 0.1 0.0-0.1 10^3/uL Immature Granulocyte # (Auto) 0.0 0.0-0.1 10^3/uL Percent Immature Platelet Fraction 6.9 0.0-7.6 % Sodium Level 132 L 135-145 MMOL/L Potassium Level 7.3 *H 3.6-5.0 MMOL/L Chloride Level 99 98-107 MMOL/L Carbon Dioxide Level 20 L 21-32 MMOL/L Anion Gap 13 5-14 MMOL/L Blood Urea Nitrogen 12 7-18 MG/DL Creatinine 0.90 0.60-1.30 MG/DL Estimat Glomerular Filtration Rate 90 BUN/Creatinine Ratio 13 Glucose Level 79 70-105 MG/DL Calcium Level 9.3 8.5-10.1 MG/DL Corrected Calcium 8.5-10.1 MG/DL Total Bilirubin 0.4 0.1-1.0 MG/DL Aspartate Amino Transf (AST/SGOT) 52 H 5-34 U/L Alanine Aminotransferase (ALT/SGPT) 15 0-55 U/L Alkaline Phosphatase 49 40-136 U/L Total Protein 10.1 H 6.4-8.2 GM/DL Albumin 4.7 H 3.2-4.5 GM/DL Lipase 21 8-78 U/L Urine Color YELLOW Urine Clarity CLEAR Urine pH 5.5 5-9 Urine Specific [place] >=1.030 1.016-1.022 Urine Protein NEGATIVE NEGATIVE Urine Glucose (UA) NEGATIVE NEGATIVE Urine Ketones NEGATIVE NEGATIVE Urine Nitrite NEGATIVE NEGATIVE Urine Bilirubin NEGATIVE NEGATIVE Urine Urobilinogen 0.2 < = 1.0 MG/DL Urine Leukocyte Esterase NEGATIVE NEGATIVE Urine RBC (Auto) TRACE-I H NEGATIVE Urine RBC RARE /HPF Urine WBC 0-2 /HPF Urine Squamous Epithelial Cells 10-25 H /HPF Urine Crystals NONE /LPF Urine Bacteria TRACE /HPF Urine Casts NONE /LPF Urine Mucus MODERATE H /LPF Urine Culture Indicated NO Urine Test NEGATIVE NEGATIVE Test 09/15/21 15:59 Range/Units Potassium Level 4.1 3.6-5.0 MMOL/L Magnesium Level 2.0 1.6-2.4 MG/DL My Orders Orders - STACEY STALEY Covid 19 Inhouse Test (09/15/21 14:06) Influenza A And B By Pcr (09/15/21 14:06) Cbc With Automated Diff (09/15/21 14:25) Comprehensive Metabolic Panel (09/15/21 14:25) Lipase (09/15/21 14:25) Urinalysis (09/15/21 14:25) Hcg,Qualitative Urine (09/15/21 14:25) Ns Iv 1000 Ml (Sodium Chloride 0.9%) (09/15/21 14:25) Ondansetron Injection (Zofran Injectio (09/15/21 14:30) Monotest (09/15/21 15:13) Potassium (09/15/21 16:01) Ekg Tracing (09/15/21 16:02) Magnesium (09/15/21 16:02) Medications Given in ED Current Medications Medications Dose Ordered Sig/Guillermo Route Start Time Stop Time Status Last Admin Dose Admin Ondansetron HCl 4 mg ONCE ONCE IVP 09/15/21 14:30 09/15/21 14:31 DC 09/15/21 14:54 4 MG Vital Signs/I&O 09/15/21 09/15/21 14:10 16:48 Temp 37.0 Pulse 96 93 Resp 14 14 B/P (MAP) 144/83 (103) 100/73 Pulse Ox 98 99 O2 Delivery Room Air Room Air Capillary Refill : ECG Comment Normal sinus rhythm, 71 bpm, QRS duration 90 MS, QTC 423 MS. UT interval 121 MS Departure Communication (PCP) Urinalysis was negative for infection or . COVID influenza negative. No focal neural deficits. Exam otherwise benign with clear lung sounds. Lab work showed slight elevated white blood count 11.4. Morris negative. Initial potassium 7.2. Concerning that the lab work was hemolyzed. Recheck at 4.1. No evidence of acute kidney injury. Would not suspect elevated potassium at her age. She is currently on control. EKG showed normal sinus rhythm without any arrhythmias. She was given a liter fluid and Zofran. She states has been having some vomiting. Symptoms appear to be more viral in nature. She is concerned for possible control which may potentially be associated with some of her symptoms. No current vaginal bleeding. Discussed outpatient follow-up with primary care physician for further evaluation. If any worsening symptoms such as chest pain, syncope, short of breath to return back to ED. Impression Primary Impression: Weakness Disposition: 01 HOME, SELF-CARE Condition: Stable Departure-Patient Inst. Decision time for Depature: 16:44 Referrals: [facility] (PCP/Family) Primary Care Physician Patient Instructions: Weakness ED Add. Discharge Instructions: Recommend staying hydrated. Follow-up with your primary care physician within the next week for reevaluation. If any worsening symptoms may return back to ED All discharge instructions reviewed with patient and/or family. Voiced understanding. Work/School Note: Work Release Form Date Seen in the Emergency Department: Sep 15, 2021 Return to Work: Sep 18, 2021 STCAEY STALEY Sep 15, 2021 14:29
[2021-09-15] MEDS ORDERED: ONDANSETRON 4 MG/2 ML (SDV) Z0FRAN IVP ONE (14:30)
[2021-09-15 14:48] LABS: BASOPHILS # (AUTO) 0.1 10^3/uL (0.0-0.1); BASOPHILS % (AUTO) 0 % (0-10); EOSINOPHILS % (AUTO) 0 % (0-10); HEMATOCRIT 44 % (35-52); LYMPHOCYTES % (AUTO) 18 % (12-44); MEAN CORPUSCULAR HEMOGLOBIN 31 pg (25-34); MEAN CORPUSCULAR HGB CONC 35 g/dL (32-36); MEAN CORPUSCULAR VOLUME 91 fL (80-99); MEAN PLATELET VOLUME 12.1 fL (9.0-12.2); MONOCYTES # (AUTO) 0.5 10^3/uL (0.0-1.0); MONOCYTES % (AUTO) 4 % (0-12); NEUTROPHILS # (AUTO) 8.8 10^3/uL (1.8-7.8); NEUTROPHILS % (AUTO) 77 % (42-75); PLATELET COUNT 255 10^3/uL (130-400); WHITE BLOOD COUNT 11.4 10^3/uL (4.3-11.0)
[2021-09-15 15:05] LABS: ALBUMIN 4.7 GM/DL (3.2-4.5); CHLORIDE 99 MMOL/L (98-107); SODIUM 132 MMOL/L (135-145)
[2021-09-15 15:06] LABS: CALCIUM 9.3 MG/DL (8.5-10.1)
[2021-09-15 15:07] LABS: GLUCOSE 79 MG/DL (70-105); TOTAL PROTEIN 10.1 GM/DL (6.4-8.2)
[2021-09-15 15:08] LABS: CARBON DIOXIDE 20 MMOL/L (21-32)
[2021-09-15 15:09] LABS: BILIRUBIN,TOTAL 0.4 MG/DL (0.1-1.0)
[2021-09-15 15:10] LABS: ALKALINE PHOSPHATASE 49 U/L (40-136)
[2021-09-15 15:11] LABS: GFR ESTIMATED 90
[2021-09-15 15:12] LABS: BUN/CREATININE RATIO 13
[2021-09-15 15:14] LABS: ALANINE AMINOTRANSFERASE 15 U/L (0-55); LIPASE 21 U/L (8-78)
[2021-09-15 15:23] LABS: BILIRUBIN,URINE NEGATIVE (NEGATIVE); CLARITY,URINE CLEAR; COLOR,URINE YELLOW; GLUCOSE, URINE (UA) NEGATIVE (NEGATIVE); KETONES,URINE NEGATIVE (NEGATIVE); LEUKOCYTE ESTERASE ,URINE NEGATIVE (NEGATIVE); NITRITE,URINE NEGATIVE (NEGATIVE); PH,URINE 5.5 (5-9); PROTEIN,URINE NEGATIVE (NEGATIVE)
[2021-09-15 15:42] LABS: BACTERIA,URINE TRACE /HPF; RBC,URINE RARE /HPF; WBC,URINE 0-2 /HPF
[2021-09-15 15:54] LABS: POTASSIUM 7.3 MMOL/L (3.6-5.0)
[2021-09-15 16:36] LABS: POTASSIUM 4.1 MMOL/L (3.6-5.0)
[2021-09-15 16:48] VITALS: BP 100/73
== END 2021-09-15 16:53 | disposition home or self-care (01) ==
LOC: EDUNIT# 14:04 → ER 14:06
DX: R53.1 Weakness (principal); D72.829 Elevated white blood cell count, unspecified; F17.290 Nicotine dependence, other tobacco product, uncomplicated; Z20.822 Contact with and (suspected) exposure to COVID-19; Z28.310 Unvaccinated for COVID-19
CPT/HCPCS: 36415; 80053; 81000; 83690; 83735; 84132; 84703; 85025; 86308; 87636; 93005

== ENCOUNTER 2021-10-01 20:13 | Emergency (ER) | payer MEDICAID ==
[~2021-10-01] VITALS: Ht 162.5 cm; Wt 96.0 kg
[2021-10-01] MEDS ORDERED: NORG1TAB14 (20:38)
[2021-10-01] MEDS ORDERED: METH-732 PO (20:59)
--- NOTE | 2021-10-01 20:59 | ED General ---
General Chief Complaint: General Problems/Pain Stated Complaint: NECK PAIN,DIFFICULTY MOVING Nursing Triage Note: c/o neck pain, intermittatn shoulder pain/headache x2 years. denies injury. reports worse x1 month. Source of Information: Patient Exam Limitations: No Limitations History of Present Illness Date Seen by Provider: Oct 01, 2021 Time Seen by Provider: 20:57 Initial Comments To ER with neck pain midline and lateral worse with turning his head to either direction or flexing her chin to chest. She works at the [employer] at [email or web address] and looking down exacerbates her symptoms. No numbness or tingling in either extremity. This is been present for about 2 years. Timing/Duration: Other Severity: Moderate Associated Systoms: Denies Symptoms Allergies and Home Medications Allergies Coded Allergies: No Known Drug Allergies (Unverified , 05/17/19) Patient Home Medication List Home Medication List Reviewed: Yes Methocarbamol (Methocarbamol) 750 Mg Tablet, 750 MG PO Q6-8HR Prescribed by: ALEAH SHAW on 10/01/212058 Norgestimate-Ethinyl Estradiol (Sprintec 28 Day Tablet) 0.25 Mg-35 Mcg Tablet, (Reported) Entered as Reported by: RUEL MENDOZA on 10/01/212037 Last Action: New Order Discontinued Medications Nitrofurantoin Monohyd/M-Cryst (Macrobid 100 mg Capsule) 100 Mg Capsule, 1 TAB PO BID Discontinued Reason: No Longer Taking Prescribed by: DONOVAN GUALLPA on 06/21/211407 Last Action: Discontinued Oxycodone HCl/Acetaminophen (Percocet 5-325 mg Tablet) 5 Mg-325 Mg Tablet, 1 TAB PO Q6H PRN for PAIN-MODERATE Discontinued Reason: No Longer Taking Prescribed by: DONOVAN GUALLPA on 06/21/211408 Last Action: Discontinued Review of Systems Review of Systems Constitutional: see HPI EENTM: see HPI Respiratory: no symptoms reported Cardiovascular: no symptoms reported Genitourinary: no symptoms reported Musculoskeletal: see HPI Skin: no symptoms reported Psychiatric/Neurological: No Symptoms Reported Hematologic/Lymphatic: No Symptoms Reported Past Siueasb-Dcbogp-Cvhesv Hx Patient Social History Tobacco Use?: Yes Substance use?: No Alcohol Use?: No Pt feels they are or have been: No Immunizations Up To Date Tetanus Booster (TDap): Unknown First/Initial COVID19 Vaccinat: NA Second COVID19 Vaccination David: NA Third COVID19 Vaccination Date: NA Seasonal Allergies Seasonal Allergies: No Past Medical History Surgery/Hospitalization HX: t/a, d&c, c-sect, sleep difficulties, depression, ch. neck pain Surgeries: Yes (C SECTION) Tonsillectomy Respiratory: No Cardiac: No Neurological: No Last Menstrual Period: Sep 29, 2021 Genitourinary: No Gastrointestinal: No Musculoskeletal: No Endocrine: No HEENT: No Cancer: No Psychosocial: Yes Sleep Difficulties, Depression Integumentary: No Blood Disorders: No Family Medical History No Pertinent Family Hx Physical Exam Vital Signs Vital Signs - First Documented 10/01/21 20:33 Temp 36.7 Pulse 90 Resp 16 B/P (MAP) 143/94 (110) Pulse Ox 98 O2 Delivery Room Air Capillary Refill : Less Than 3 Seconds Height, Weight, BMI Height: '" Weight: lbs. oz. kg; 36.00 BMI Method: General Appearance: No Apparent Distress, WD/WN Eyes: Bilateral Eye Normal Inspection, Bilateral Eye PERRL, Bilateral Eye EOMI HEENT: PERRL/EOMI, TMs Normal Neck: Full Range of Motion, Normal Inspection Respiratory: No Accessory Muscle Use, No Respiratory Distress, Other (She is tachypneic but with normal oxygen saturation. Heart rate about 100.) Cardiovascular: Regular Rate, Rhythm, Normal Peripheral Pulses Gastrointestinal: Normal Bowel Sounds, Non Tender, Soft Extremity: Normal Capillary Refill, Normal Inspection Neurologic/Psychiatric: Alert, Oriented x3 Skin: Normal Color, Warm/Dry Progress/Results/Core Measures Suspected Sepsis SIRS Temperature: Pulse: 90 Respiratory Rate: 16 Blood Pressure 143 /94 Mean: 110 Results/Orders My Orders Orders - ALEAH SHAW APRN Ketorolac Injection (Toradol Injection) (10/01/21 21:00) Orphenadrine Inj (Ed Only) (Norflex Inje (10/01/21 21:00) Medications Given in ED Current Medications Medications Dose Ordered Sig/Guillermo Route Start Time Stop Time Status Last Admin Dose Admin Ketorolac Tromethamine 60 mg ONCE ONCE IM 10/01/21 21:00 10/01/21 21:01 DC 10/01/21 21:11 60 MG Orphenadrine Citrate 60 mg ONCE ONCE IM 10/01/21 21:00 10/01/21 21:01 DC 10/01/21 21:10 60 MG Vital Signs/I&O 10/01/21 10/01/21 10/01/21 20:33 21:11 21:13 Temp 36.7 36.7 Pulse 90 78 Resp 16 16 B/P (MAP) 143/94 (110) 121/91 Pulse Ox 98 99 O2 Delivery Room Air Room Air Capillary Refill : Less Than 3 Seconds Blood Pressure Mean: 110 Departure Impression Primary Impression: Cervicalgia Disposition: HOME, SELF-CARE Condition: Stable Departure-Patient Inst. Decision time for Depature: 20:57 Referrals: [facility] (PCP/Family) Primary Care Physician Patient Instructions: Neck Pain ED Scripts Methocarbamol (Methocarbamol) 750 Mg Tablet 750 MG PO Q6-8HR for Back Pain, #30 TAB Prov: ALEAH SHAW APRN 10/01/21 Work/School Note: Work Release Form Date Seen in the Emergency Department: Oct 01, 2021 Return to Work: Oct 02, 2021 Other Restrictions Listed Below: do not flex neck, may require sitting to keep head neutral ALEAH SHAW APRN Oct 01, 2021 20:59
[2021-10-01] MEDS ORDERED: ORPHENADRINE 60 MG/2 ML (NORFLEX) AMP (ED ONLY) IM ONE (21:00)
[2021-10-01] MEDS ORDERED: KETOROLAC 60 MG/2 ML VIAL IM ONE (21:00)
[2021-10-01 21:13] VITALS: BP 121/91
== END 2021-10-01 21:14 | disposition home or self-care (01) ==
LOC: EDUNIT# 20:13 → ER 20:14
DX: M54.2 Cervicalgia (principal); Z28.310 Unvaccinated for COVID-19
CPT/HCPCS: 99284